=== PATIENT | male | born 1950 | race Caucasian/White ===

== ENCOUNTER → 2017-05-26 | Outpatient (CLI) | payer MEDICARE, OTHER ==
[2017-05-26 16:31] LABS: CHOLESTEROL LEVEL 213 MG/DL (<200); HDL CHOLESTEROL 60 MG/DL (>40); LDL CHOLESTEROL 136.4 MG/DL (<100); NON-HDL-C 153 MG/DL; TRIGLYCERIDES LEVEL 83 MG/DL (<150)
== END ==
LOC: M WUC 11:05
DX: E78.2 Mixed hyperlipidemia (principal)
CPT/HCPCS: 80061

== ENCOUNTER → 2017-11-08 | Outpatient (REF) | payer MEDICARE, OTHER | LOC: M SFHCADAM 17:25 | DX: Z12.5 Encounter for screening for malignant neoplasm of prostate (principal); G30.0 Alzheimer's disease with early onset; Z53.8 Procedure and treatment not carried out for other reasons ==

== ENCOUNTER → 2018-07-31 | Outpatient (CLI) | payer MEDICARE, OTHER ==
[2018-07-31 16:58] LABS: BASO % 0.4 % (0.0-1.0); EOS # 0.1 10^3/uL (0.0-0.50); EOS % 0.7 % (0.0-3.0); HEMATOCRIT 46.9 % (42.0-52.0); HEMOGLOBIN 16.4 g/dl (13.5-17.5); LYMPH # 1.1 10^3/uL (1.5-4.5); LYMPH % 15.8 % (24.0-44.0); MEAN CORPUSCULAR HEMOGLOBIN 31.1 pg (27.0-33.0); MEAN CORPUSCULAR VOLUME 88.8 fl (80.0-96.0); MONO # 0.5 10^3/uL (0.0-0.8); MONO % 6.5 % (0.0-5.0); NEUTROPHILS # 5.5 10^3/uL (1.8-7.7); NEUTROPHILS % 76.5 % (36.0-66.0); PLATELET COUNT, AUTOMATED 203 10^3/uL (150-450); RED BLOOD COUNT 5.28 10^6/uL (4.30-6.10); WHITE BLOOD COUNT 7.1 10^3/uL (4.0-10.0)
[2018-07-31 17:15] LABS: ALT/SGPT 50 U/L (12-78); BILIRUBIN,TOTAL 1.4 MG/DL (0.2-1.0); BLOOD UREA NITROGEN 15 MG/DL (7-18); CALCIUM LEVEL 8.6 MG/DL (8.8-10.2); CARBON DIOXIDE LEVEL 26 MEQ/L (21-32); CHLORIDE LEVEL 106 MEQ/L (98-107); CREATININE FOR GFR 1.16 MG/DL (0.70-1.30); FREE T4 1.11 NG/DL (0.76-1.46); GLOMERULAR FILTRATION RATE > 60.0 (>49); GLUCOSE, FASTING 92 MG/DL (70-100); POTASSIUM SERUM 4.1 MEQ/L (3.5-5.1); SODIUM LEVEL 140 MEQ/L (136-145); TOTAL PROTEIN 7.5 GM/DL (6.4-8.2)
== END ==
LOC: M WUC 13:38
PROVIDERS: ATTEND Physician Assistant
DX: G30.9 Alzheimer's disease, unspecified (principal)

== ENCOUNTER → 2018-10-15 | Outpatient (CLI) | payer MEDICARE, OTHER ==
[2018-10-15 13:32] LABS: HEMATOCRIT 46.4 % (42.0-52.0); HEMOGLOBIN 16.2 g/dl (13.5-17.5); MEAN CORPUSCULAR HEMOGLOBIN 31.9 pg (27.0-33.0); MEAN CORPUSCULAR HGB CONC 34.9 g/dl (32.0-36.5); MEAN CORPUSCULAR VOLUME 91.3 fl (80.0-96.0); PLATELET COUNT, AUTOMATED 196 10^3/uL (150-450); RED BLOOD COUNT 5.08 10^6/uL (4.30-6.10); WHITE BLOOD COUNT 5.6 10^3/uL (4.0-10.0)
[2018-10-15 13:39] LABS: ALBUMIN 3.6 GM/DL (3.2-5.2); ALT/SGPT 42 U/L (12-78); BILIRUBIN,TOTAL 0.9 MG/DL (0.2-1.0); BLOOD UREA NITROGEN 12 MG/DL (7-18); CALCIUM LEVEL 8.8 MG/DL (8.8-10.2); CARBON DIOXIDE LEVEL 27 MEQ/L (21-32); CHLORIDE LEVEL 108 MEQ/L (98-107); CREATININE FOR GFR 1.18 MG/DL (0.70-1.30); FREE T4 1.03 NG/DL (0.76-1.46); GLOMERULAR FILTRATION RATE > 60.0 (>49); GLUCOSE, FASTING 104 MG/DL (70-100); POTASSIUM SERUM 4.5 MEQ/L (3.5-5.1); SODIUM LEVEL 141 MEQ/L (136-145)
== END ==
LOC: M WUC 08:43
PROVIDERS: ATTEND Family Medicine
DX: G30.0 Alzheimer's disease with early onset (principal); Z12.5 Encounter for screening for malignant neoplasm of prostate
CPT/HCPCS: 36415; 80053; 84439; 84443; 85027; G0103

== ENCOUNTER → 2019-02-05 | Outpatient (CLI) | payer MEDICARE, OTHER ==
[2019-02-05 12:06] LABS: CHOLESTEROL RISK RATIO 3.576 (<5)
== END ==
LOC: M WUC 09:49
PROVIDERS: ATTEND Family Medicine
DX: E78.2 Mixed hyperlipidemia (principal)

== ENCOUNTER 2019-08-17 09:44 | Observation (INO) | payer MEDICARE, OTHER ==
[~2019-08-17] VITALS: Ht 175.3 cm; Wt 99.5 kg
[2019-08-17] MEDS ORDERED: NS 500 ML IV ONE (10:15)
[2019-08-17] MEDS ORDERED: NAMZ1CAP2 PO (10:36)
[2019-08-17] MEDS ORDERED: QUET5TAB PO (10:36)
[2019-08-17 11:03] LABS: VENOUS HCO3 25.8 MEQ/L (23.0-27.0); VENOUS O2 SATURATION 41.3 % (60.0-80.0); VENOUS PARTIAL PRESSURE CO2 45.7 mmHg (38.0-50.0); VENOUS PARTIAL PRESSURE O2 22.5 mmHg (30.0-50.0); VENOUS PH 7.369 UNITS (7.330-7.430); VENOUS TOTAL CO2 27.2 MEQ/L (24.0-28.0)
[2019-08-17 11:09] LABS: BASO % 0.1 % (0.0-1.0); HEMATOCRIT 45.9 % (42.0-52.0); HEMOGLOBIN 15.7 g/dl (13.5-17.5); LYMPH # 0.6 10^3/uL (1.5-5.0); LYMPH % 3.9 % (24.0-44.0); MEAN CORPUSCULAR HEMOGLOBIN 30.1 pg (27.0-33.0); MEAN CORPUSCULAR HGB CONC 34.2 g/dl (32.0-36.5); MEAN CORPUSCULAR VOLUME 88.1 fl (80.0-96.0); MONO # 0.9 10^3/uL (0.0-0.8); MONO % 6.1 % (0.0-5.0); NEUTROPHILS # 12.9 10^3/uL (1.5-8.5); NEUTROPHILS % 88.9 % (36.0-66.0); PLATELET COUNT, AUTOMATED 169 10^3/uL (150-450); RED BLOOD COUNT 5.21 10^6/uL (4.30-6.10); WHITE BLOOD COUNT 14.5 10^3/uL (4.0-10.0)
--- NOTE | 2019-08-17 11:34 | REP ---
CT BRAIN WITHOUT CONTRAST: CT brain performed without IV contrast. Coronal reconstruction images are performed. There is mild to moderate atrophy. There is no midline shift or mass effect. No abnormal parenchymal opacities are seen. There is no acute intracranial hemorrhage. There is no extra-axial fluid collection. Bone window examination is unremarkable. Visualized paranasal sinuses are clear and the mastoid air cells are well aerated and clear. IMPRESSION: Atrophy. No acute intracranial finding. No acute intracranial hemorrhage, midline shift, or mass effect. Electronically Signed by Cornelio Prince MD 08/17/2019 12:51 P
[2019-08-17 11:44] LABS: ALBUMIN 3.5 GM/DL (3.2-5.2); ALT/SGPT 37 U/L (12-78); BILIRUBIN,DIRECT 0.4 MG/DL (0.0-0.2); BILIRUBIN,TOTAL 1.6 MG/DL (0.2-1.0); BLOOD UREA NITROGEN 13 MG/DL (7-18); CALCIUM LEVEL 8.7 MG/DL (8.8-10.2); CARBON DIOXIDE LEVEL 27 MEQ/L (21-32); CHLORIDE LEVEL 105 MEQ/L (98-107); CK-MB VALUE MASS 4.1 NG/ML (<3.6); CPK CREATINE PHOSPHOKINASE 411 U/L (39-308); GLOMERULAR FILTRATION RATE > 60.0 (>49); GLUCOSE, FASTING 115 MG/DL (70-100); POTASSIUM SERUM 3.9 MEQ/L (3.5-5.1); SODIUM LEVEL 138 MEQ/L (136-145); THYROID STIMULATING HORMONE 0.624 uIU/ML (0.358-3.740); TOTAL PROTEIN 7.5 GM/DL (6.4-8.2); TROPONIN I < 0.02 NG/ML (< 0.10)
[2019-08-17 11:57] LABS: OSMOLALITY SERUM 287 MOSM/KG (280-301)
[2019-08-17] MEDS ORDERED: cefTRIAXone SOD 1 GM in D5W MINI-BAG PLUS 50 ML IV ONE (12:45)
--- NOTE | 2019-08-17 12:50 | REP ---
CHEST, SINGLE VIEW: Single view of the chest is performed. Comparison 08/22/2012. There is mild left ventricular prominence. No acute infiltrate is seen. Mediastinal silhouette is unremarkable. IMPRESSION: No evidence of acute pulmonary disease. Electronically Signed by Cornelio Prince MD 08/17/2019 12:52 P
[2019-08-17] MEDS ORDERED: ACETAMINOPHEN TAB 650MG DOSE (2X325MG) PO PRN (13:00)
[2019-08-17] MEDS ORDERED: FLAXOIL PO (13:20)
[2019-08-17 14:46] VITALS: BP 136/66
[2019-08-17] MEDS: NS 1,000 ML IV SCH (15:53)
--- NOTE | 2019-08-17 16:41 | HPEPDOC ---
General Date of Admission Aug 17, 2019 at 09:45 Date of Service: Aug 17, 2019 Attending Physician: ADA PETERSON MD Chief Complaint The patient is a 69-year-old male admitted with a reason for visit of Alzheimers Disease, Uti. Source: Family, Old records Exam Limitations: Dementia History of Present Illness She is a 69-year-old male with a history of early-onset Alzheimer's disease and HLD, who is brought in by for change in mental status. Patient was his usual state of health until 2 days prior to admission when noted that pt started to become more aggressive than usual. Pt would not let her clean him or change his soiled diaper. Then day prior to admission states that she was unable to get patient out of chair since 12pm. He continued to become increasingly agitated and she was unable to care for him at home. At baseline, patient is a normally able to feed self and ambulate with no assistance. On my exam, patient is noncommunicative and noninteractive. Only opens eyes to name, but otherwise does not follow commands. Unable to obtain ROS due to patient's mental status (advanced dementia). Of note states that pt had fever day prior to admission to 102.1. but she denies other symptoms of chills, CP, SOB, N/V, ab pain, diarrhea. Home Medications Scheduled Memantine HCl/Donepezil HCl (Namzaric 28 mg-10 mg Capsule) 1 Each Cap.spr.24, 1 CAP PO DAILY, (Reported) SPRINKLE ONTO MORNING CEREAL Quetiapine Fumarate (Quetiapine Fumarate) 50 Mg Tablet, 37.5 MG PO QHS, (Reported) [Flaxseed Oil] , 10 ML PO DAILY, (Reported) GIVEN WITH MORNING MEAL Allergies Coded Allergies: Celery (Verified Allergy, Unknown, 08/17/19) iodine (Verified Allergy, Unknown, rash, 08/17/19) Past Medical History Medical History early-onset Alzheimer's disease and HLD Surgical History tympanoplasty Family History Significant Family History: Cancer, Hypertension Social History * Smoker: Denies Alcohol: Denies Drugs: denies Psychosocial History: Dementia lives at home with who is primary caregiver, at baseline walks daily and able to feed self and help take care of him. (get up from chair, assist with showering, etc.) A-FIB/CHADSVASC A-FIB History Current/History of A-Fib/PAF?: No Current PO Anticoag Therapy: No Review of Systems Other systems ROS unable to obtain due to patient's mental status (advanced dementia) Physical Examination Other physical findings Well-developed, well-nourished male laying in bed in no acute distress, noninteractive and noncommunicative with interviewer. PERRLA, EOMI, patient would not open mouth to be examined. No LAD. RRR, normal S1/2, no MRG appreciated. CTA B/L, W/R/R Soft, nontender, nondistended. No edema, intact distal pulses. No rash or skin breakdown appreciated. Unable to assess neurological status as patient unwilling to participate with in exam AAO 1 Vital Signs Vital Signs Date Time Temp Pulse Resp B/P (MAP) Pulse Ox O2 Delivery O2 Flow Rate FiO2 08/17/19 14:46 99.0 82 20 136/66 (89) 94 Room Air Laboratory Data Labs 24H Laboratory Tests 2 08/17/19 10:53: Immature Granulocyte % (Auto) 1.0, Neutrophils (%) (Auto) 88.9H, Lymphocytes (%) (Auto) 3.9L, Monocytes (%) (Auto) 6.1H, Eosinophils (%) (Auto) 0.0, Basophils (%) (Auto) 0.1, Neutrophils # (Auto) 12.9H, Lymphocytes # (Auto) 0.6L, Monocytes # (Auto) 0.9H, Eosinophils # (Auto) 0.0, Basophils # (Auto) 0.0, Nucleated Red Blood Cells % (auto) 0.0, Urine Color OCTAVIANO, Urine Appearance CLOUDYH, Urine pH 5.0, Urine Specific [place] 1.031, Urine Protein 2+H, Urine Glucose (UA) NEGATIVE, Urine Ketones 1+H, Urine Blood 2+H, Urine Nitrite NEGATIVE, Urine Bilirubin NEGATIVE, Urine Urobilinogen 0.2, Urine Leukocyte Esterase 1+H, Urine WBC (Auto) 101H, Urine RBC (Auto) 10H, Urine Hyaline Casts (Auto) 0, Urine Bacteria (Auto) 1+H, Urine Squamous Epithelial Cells 1, Urine Mucus (Auto) LARGE, Urine Sperm (Auto) , Blood Gas Bicarbonate Standard 23.0, Venous Blood pH 7.369, Venous Blood Partial Pressure CO2 45.7, Venous Blood Partial Pressure O2 22.5L, Venous Blood Total Carbon Dioxide 27.2, Venous Blood HCO3 25.8, Venous Blood Oxygen Saturation 41.3L, Venous Blood Base Excess 0.0, Anion Gap 6L, Glomerular Filtration Rate > 60.0, Osmolality 287, Lactic Acid Level 1.9, Calcium Level 8.7L, Total Bilirubin 1.6H, Direct Bilirubin 0.4H, Aspartate Amino Transf (AST/SGOT) 25, Alanine Aminotransferase (ALT/SGPT) 37, Alkaline Phosphatase 118H, Ammonia < 10, Total Creatine Kinase 411H, Creatine Kinase MB 4.1H, Creatine Kinase MB Relative Index 1.00, Troponin I < 0.02, Total Protein 7.5, Albumin 3.5, Albumin/Globulin Ratio 0.88L, Thyroid Stimulating Hormone (TSH) 0.624, Ethyl Alcohol Level 0.004 CBC/BMP Laboratory Tests 08/17/19 10:53 Microbiology Microbiology 08/17/19 Blood Culture, Received Pending 08/17/19 Urine Culture, Received Pending 08/17/19 Blood Culture, Received Pending RAD Interpretation STUDY: CXR Rad Actions: Films Reviewed (my read: Clear CP angles, no cardiopulmonary disease identified) Assessment/Plan She is a 69-year-old male with a history of early-onset Alzheimer's disease and HLD, who is brought in by for change in mental status. Patient found to have UTI given dirty UA with elevated WBC count with left shift. UTI likely accounts for patient's altered mental status. At baseline, patient appears to be otherwise high functioning given advanced dementia. Will treat UTI assess mental status. #UTI. Admit for observation Ceftriaxone Pandey until patient more interactive Trend CBC -IVFs #Metabolic encephalopathy due to UTI. Monitor mental status. Treat UTI as above If mental status does not improve with treatment of UTI, would consider worsening of advanced dementia as etiology #Early-onset Alzheimer's disease Continue home meds PT/OT #HLD Continue home meds DVT PPX: Lovenox Disposition: Pending improvement in mental status and PT/OT evaluation Plan / VTE VTE Prophylaxis Ordered?: Yes ADA PETERSON MD Aug 17, 2019 15:17
[2019-08-17] MEDS ORDERED: PILL CUTTER 1 EACH XX PRN (18:00)
--- NOTE | 2019-08-17 18:33 | ECGEPIP ---
[facility] [place] - ED Test Date: 2019-08-17 Pat Name: BERNADINE JEFFERSON Department: Room: - Gender: Male International Account Representative: MAVERICK : 1950 Requested By: JIM Pimentel Order Number: [id number] Reading MD: Jim Wright Measurements Intervals [place] Rate: 88 P: 62 MA: 174 QRS: 43 QRSD: 93 T: 39 QT: 317 QTc: 385 Interpretive Statements SINUS RHYTHM LOW QRS VOLTAGE IN PRECORDIAL LEADS Nonspecific T wave abnormality Comparison tracing not on file Electronically Signed on 08-17-2019 18:33:13 EDT by Jim Wright
[2019-08-17] MEDS: QUEtiapine FUMARATE 25 MG TAB PO SCH (20:03)
[2019-08-17] MEDS: ENOXAPARIN 40MG/0.4ML SYRINGE (J1650 PER 10MG) SC SCH (20:06)
[2019-08-17 22:00] VITALS: BP 130/67
[2019-08-18] MEDS: NS 1,000 ML IV SCH ×4 (03:47→21:30)
[2019-08-18 06:00] VITALS: BP 141/76
[2019-08-18 06:40] LABS: HEMATOCRIT 42.5 % (42.0-52.0); HEMOGLOBIN 14.7 g/dl (13.5-17.5); MEAN CORPUSCULAR HEMOGLOBIN 30.5 pg (27.0-33.0); MEAN CORPUSCULAR HGB CONC 34.6 g/dl (32.0-36.5); MEAN CORPUSCULAR VOLUME 88.2 fl (80.0-96.0); PLATELET COUNT, AUTOMATED 166 10^3/uL (150-450); RED BLOOD COUNT 4.82 10^6/uL (4.30-6.10); WHITE BLOOD COUNT 13.8 10^3/uL (4.0-10.0)
--- NOTE | 2019-08-18 08:26 | IPNPDOC ---
Date Seen The patient was seen on 08/18/19. Progress Note SUBJECTIVE: Pt seen and examined at bedside. Pt appears to be doing well. Says he is feeling "OK". Rest of ROS unable to obtain due to pt's advanced dementia OBJECTIVE PHYSICAL EXAMINATION: VITAL SIGNS: Please see below. Well-developed, well-nourished male laying in bed asleep in no acute distress, minimally interactive but following some simple commands RRR, normal S1/2, no MRG appreciated. CTA B/L, W/R/R Soft, nontender, nondistended. No edema, intact distal pulses. No rash or skin breakdown appreciated. Pandey in place draining dark brown urine Pt moving all extremities AAO 1 - responds to name and able to say name LABORATORY DATA, IMAGING STUDIES, MICROBIOLOGY: Please see below. ASSESSMENT AND PLAN: She is a 69-year-old male with a history of early-onset Alzheimer's disease and HLD, who is brought in by for change in mental status. Patient found to have UTI given dirty UA with elevated WBC count with left shift. UTI likely accounts for patient's altered mental status. At baseline, patient appears to be otherwise high functioning given advanced dementia. Will treat UTI assess mental status. Pt stable overnight with no issues. #UTI. Admit for observation Ceftriaxone Pandey until patient more interactive Trend CBC slightly downtrending -IVFs - will increase to 125mls/hr given mild decrease in CK and dark brown urine #Metabolic encephalopathy due to UTI. Monitor mental status. Treat UTI as above If mental status does not improve with treatment of UTI, would consider worsening of advanced dementia as etiology #Early-onset Alzheimer's disease Continue home meds PT/OT #HLD Continue home meds DVT PPX: Lovenox Disposition: Pending improvement in mental status and PT/OT evaluation VS, I&O, 24H, Fishbone Vital Signs/I&O Vital Signs Date Time Temp Pulse Resp B/P (MAP) Pulse Ox O2 Delivery O2 Flow Rate FiO2 08/18/19 06:00 98.8 76 24 141/76 (97) 97 Room Air I&O- Last 24 Hours up to 6 AM 08/18/19 06:00 Intake Total 850 ml Output Total 475 ml Balance 375 ml Laboratory Data 24H LABS Laboratory Tests 2 08/17/19 10:53: Immature Granulocyte % (Auto) 1.0, Neutrophils (%) (Auto) 88.9H, Lymphocytes (%) (Auto) 3.9L, Monocytes (%) (Auto) 6.1H, Eosinophils (%) (Auto) 0.0, Basophils (%) (Auto) 0.1, Neutrophils # (Auto) 12.9H, Lymphocytes # (Auto) 0.6L, Monocytes # (Auto) 0.9H, Eosinophils # (Auto) 0.0, Basophils # (Auto) 0.0, Nucleated Red Blood Cells % (auto) 0.0, Urine Color OCTAVIANO, Urine Appearance CLOUDYH, Urine pH 5.0, Urine Specific [place] 1.031, Urine Protein 2+H, Urine Glucose (UA) NE GATIVE, Urine Ketones 1+H, Urine Blood 2+H, Urine Nitrite NEGATIVE, Urine Bilirubin NEGATIVE, Urine Urobilinogen 0.2, Urine Leukocyte Esterase 1+H, Urine WBC (Auto) 101H, Urine RBC (Auto) 10H, Urine Hyaline Casts (Auto) 0, Urine Bacteria (Auto) 1+H, Urine Squamous Epithelial Cells 1, Urine Mucus (Auto) LARGE, Urine Sperm (Auto) , Blood Gas Bicarbonate Standard 23.0, Venous Blood pH 7.369, Venous Blood Partial Pressure CO2 45.7, Venous Blood Partial Pressure O2 22.5L, Venous Blood Total Carbon Dioxide 27.2, Venous Blood HCO3 25.8, Venous Blood Oxygen Saturation 41.3L, Venous Blood Base Excess 0.0, Anion Gap 6L, Glomerular Filtration Rate > 60.0, Osmolality 287, Lactic Acid Level 1.9, Calcium Level 8.7L, Total Bilirubin 1.6H, Direct Bilirubin 0.4H, Aspartate Amino Transf (AST/SGOT) 25, Alanine Aminotransferase (ALT/SGPT) 37, Alkaline Phosphatase 118H, Ammonia < 10, Total Creatine Kinase 411H, Creatine Kinase MB 4.1H, Creatine Kinase MB Relative Index 1.00, Troponin I < 0.02, Total Protein 7.5, Albumin 3.5, Albumin/Globulin Ratio 0.88L, Thyroid Stimulating Hormone (TSH) 0.624, Ethyl Alcohol Level 0.004 08/18/19 05:45: Total Creatine Kinase 395H 08/18/19 05:51: Nucleated Red Blood Cells % (auto) 0.0 CBC/BMP Laboratory Tests 08/17/19 10:53 08/18/19 05:51 Microbiology Microbiology 08/17/19 Blood Culture, Received Pending 08/17/19 Urine Culture, Received Pending 08/17/19 Blood Culture, Received Pending ADA PETERSON MD Aug 18, 2019 08:26
[2019-08-18] MEDS: cefTRIAXone SOD 1 GM in D5W MINI-BAG PLUS 50 ML IV SCH (13:38)
[2019-08-18 14:00] VITALS: BP 109/55
[2019-08-18] MEDS: QUEtiapine FUMARATE 25 MG TAB PO SCH (21:00)
[2019-08-18] MEDS: ENOXAPARIN 40MG/0.4ML SYRINGE (J1650 PER 10MG) SC SCH (21:16)
[2019-08-18 22:00] VITALS: BP 114/69
[2019-08-19 06:00] VITALS: BP 110/70
[2019-08-19] MEDS: NS 1,000 ML IV SCH ×3 (06:11→08:10)
[2019-08-19 06:14] LABS: HEMATOCRIT 36.7 % (42.0-52.0); MEAN CORPUSCULAR HEMOGLOBIN 30.5 pg (27.0-33.0); MEAN CORPUSCULAR HGB CONC 34.6 g/dl (32.0-36.5); PLATELET COUNT, AUTOMATED 141 10^3/uL (150-450); RED BLOOD COUNT 4.17 10^6/uL (4.30-6.10)
[2019-08-19 06:21] LABS: HEMOGLOBIN 12.7 g/dl (13.5-17.5)
[2019-08-19] MEDS ORDERED: CEFD1CAP8 PO (12:23)
--- NOTE | 2019-08-19 12:35 | DS.PDOC ---
Discharge Summary General Date of Admission Aug 17, 2019 at 09:45 Date of Discharge 08/19/19 Attending Physician: ADA PETERSON MD Discharge Summary PROCEDURES PERFORMED DURING STAY: None. ADMITTING DIAGNOSES: 1. Metabolic encephalopathy 2. UTI DISCHARGE DIAGNOSES: 1. Metabolic encephalopathy 2. UTI 3. Early-onset Alzheimer's disease 4. HLD COMPLICATIONS/CHIEF COMPLAINT: Alzheimers Disease, Uti. HISTORY OF PRESENT ILLNESS: He is a 69-year-old male with a history of early-onset Alzheimer's disease and HLD, who is brought in by for change in mental status. Patient was his usual state of health until 2 days prior to admission when noted that pt started to become more aggressive than usual. Pt would not let her clean him or change his soiled diaper. Then day prior to admission states that she was unable to get patient out of chair since 12pm. He continued to become increasingly agitated and she was unable to care for him at home. At baseline, patient is a normally able to feed self and ambulate with no assistance. On my exam, patient is noncommunicative and noninteractive. Only opens eyes to name, but otherwise does not follow commands. Unable to obtain ROS due to patient's mental status (advanced dementia). Of note states that pt had fever day prior to admission to 102.1. but she denies other symptoms of chills, CP, SOB, N/V, ab pain, diarrhea. HOSPITAL COURSE: Pt found to have dirty UA consistent with UTI. Pt started on ceftriaxone with good effect. Pt's mental status improved rapidly. WBC resolved back to normal from 14. Pt's urine culture came back as klebsiella Oxytoca fairly sensitive. Will send pt home on Cefdinir 300 BID for 8more days to finish a 10day course. Spoke to who is in agreement with plan. Pt seen and e xamined on day of discharge and doing quite well. Pt observed ambulating with minimal assist, feeding self and per report from sounds to be close to baseline. Pt denies any complaints including fever, chills, CP, SOB, N/V, ab pain, leg pain or swelling. DISCHARGE MEDICATIONS: Please see below. ALLERGIES: Please see below. PHYSICAL EXAMINATION ON DISCHARGE: VITAL SIGNS: Please see below. Well-developed, well-nourished male sitting up in chair in NAD, interactive, answering questions with one-two word responses, following some commands with prompting RRR, normal S1/2, no MRG appreciated. CTA B/L, W/R/R Soft, nontender, nondistended. No edema, intact distal pulses. No rash or skin breakdown appreciated. Pt moving all extremities AAO 1 - responds to name and able to say name LABORATORY DATA: Please see below. PROGNOSIS: fair ACTIVITY: As tolerated DIET: DASH diet DISCHARGE PLAN: Discharge to home with home health services DISCHARGE INSTRUCTIONS: 1. Please follow up with your primary provider in 1week upon discharge from the hospital ITEMS TO FOLLOWUP ON ON OUTPATIENT: 1. please ensure pt back to baseline DISCHARGE CONDITION: Stable TIME SPENT ON DISCHARGE: 36 minutes. Vital Signs/I&Os Vital Signs Date Time Temp Pulse Resp B/P (MAP) Pulse Ox O2 Delivery O2 Flow Rate FiO2 08/19/19 06:00 98.0 70 21 110/70 (83) 99 Room Air I&O- Last 24 Hours up to 6 AM 08/19/19 05:59 Intake Total 2435 ml Output Total 200 ml Balance 2235 ml Laboratory Data Labs 24H Laboratory Tests 2 08/19/19 05:25: Nucleated Red Blood Cells % (auto) 0.0 CBC/BMP Laboratory Tests 08/19/19 05:25 Microbiology Microbiology 08/17/19 Blood Culture - Preliminary, Resulted No Growth after 48 hours. All Specime... 08/17/19 Urine Culture - Final, Complete Klebsiella Oxytoca 08/17/19 Blood Culture - Preliminary, Resulted No Growth after 48 hours. All Specime... Discharge Medications Scheduled Cefdinir (Cefdinir) 300 Mg Capsule, 300 MG PO BID Memantine HCl/Donepezil HCl (Namzaric 28 mg-10 mg Capsule) 1 Each Cap.spr.24, 1 CAP PO DAILY, (Reported) SPRINKLE ONTO MORNING CEREAL Quetiapine Fumarate (Quetiapine Fumarate) 50 Mg Tablet, 37.5 MG PO QHS, (Reported) [Flaxseed Oil] , 10 ML PO DAILY, (Reported) GIVEN WITH MORNING MEAL Allergies Coded Allergies: Celery (Verified Allergy, Unknown, 08/17/19) iodine (Verified Allergy, Unknown, rash, 08/17/19) ADA PETERSON MD Aug 19, 2019 12:35
[2019-08-19] MEDS: cefTRIAXone SOD 1 GM in D5W MINI-BAG PLUS 50 ML IV SCH (13:00)
== END 2019-08-19 13:21 | disposition home or self-care (01) ==
LOC: M ED 09:44 → EDBD 09:44 → M ED INP 09:45 → ENRESERV 13:34 → M MSPAV 14:09
PROVIDERS: ADMIT Internal Medicine; ATTEND Internal Medicine
DX: G93.41 Metabolic encephalopathy (principal); N39.0 Urinary tract infection, site not specified; B96.1 Klebsiella pneumoniae [K. pneumoniae] as the cause of diseases classified elsewhere; E78.49 Other hyperlipidemia; Z79.899 Other long term (current) drug therapy; Z91.018 Allergy to other foods
CPT/HCPCS: 36415; 70450; 71045; 80048; 80076; 81001; 82140; 82550; 82553; 82803; 83605; 83930; 84443; 84484; 85025; 85027; 87040; 87088; 87186; 93005; 93041; 96361; 96365; 96372; 97161; 97165; 97530; 99285; G0378; G0480; J0696; J1650

== ENCOUNTER → 2019-08-21 | Outpatient (CLI) | payer MEDICARE, OTHER ==
[~2019-08-21] MED LIST: CEFD1CAP8 PO; FLAXOIL PO; GING1CAP PO; NAMZ1CAP2 PO; QUET5TAB PO; SERO50TA PO; [UNRECOGNIZED DRUG - OTHER] PO
--- NOTE | 2019-08-21 15:45 | REP ---
Chest x-ray: Four views. History: Dyspnea on exertion. Comparison chest x-ray: August 17, 2019. Findings: There is linear bibasilar plate-like atelectasis. On the right, this overlies the dome of the right hemidiaphragm. On the left it is behind the heart and vertically oriented. No infiltrate is seen. Heart size is borderline and unchanged. Pulmonary vasculature is not increased. There is no evidence of pneumothorax. Pleural angles appear sharp. Impression: Mild bibasilar plate-like atelectasis. Otherwise no active disease. Electronically Signed by Alban Meléndez MD 08/22/2019 10:03 A
== END ==
LOC: M ADAMS 14:58
PROVIDERS: ATTEND Family Medicine
DX: J98.11 Atelectasis (principal); R06.00 Dyspnea, unspecified
CPT/HCPCS: 71046; 80053; 85027; 99496; G0463

== ENCOUNTER → 2019-08-21 | Outpatient (REF) | payer MEDICARE, OTHER ==
[~2019-08-21] MED LIST changes: -GING1CAP PO; -SERO50TA PO; -[UNRECOGNIZED DRUG - OTHER] PO
[2019-08-21 16:25] LABS: HEMATOCRIT 43.5 % (42.0-52.0); HEMOGLOBIN 15.1 g/dl (13.5-17.5); MEAN CORPUSCULAR HEMOGLOBIN 30.4 pg (27.0-33.0); MEAN CORPUSCULAR HGB CONC 34.7 g/dl (32.0-36.5); MEAN CORPUSCULAR VOLUME 87.7 fl (80.0-96.0); PLATELET COUNT, AUTOMATED 201 10^3/uL (150-450); RED BLOOD COUNT 4.96 10^6/uL (4.30-6.10); WHITE BLOOD COUNT 6.5 10^3/uL (4.0-10.0)
[2019-08-21 16:43] LABS: ALT/SGPT 53 U/L (12-78); BILIRUBIN,TOTAL 0.8 MG/DL (0.2-1.0); BLOOD UREA NITROGEN 11 MG/DL (7-18); CALCIUM LEVEL 8.5 MG/DL (8.8-10.2); CARBON DIOXIDE LEVEL 26 MEQ/L (21-32); CHLORIDE LEVEL 106 MEQ/L (98-107); CREATININE FOR GFR 0.95 MG/DL (0.70-1.30); GLOMERULAR FILTRATION RATE > 60.0 (>49); GLUCOSE, FASTING 79 MG/DL (70-100); POTASSIUM SERUM 3.8 MEQ/L (3.5-5.1); SODIUM LEVEL 140 MEQ/L (136-145); TOTAL PROTEIN 6.8 GM/DL (6.4-8.2)
== END ==
LOC: M SFHCADAM 14:56
PROVIDERS: ATTEND Family Medicine
DX: R06.00 Dyspnea, unspecified (principal)

== ENCOUNTER 2019-09-12 14:37 | Inpatient (IN) | payer MEDICARE, OTHER ==
[~2019-09-12] VITALS: Ht 175.3 cm; Wt 92.7 kg
[2019-09-12] MEDS ORDERED: NS 1,000 ML IV ONE ×2 (15:00→18:00)
[2019-09-12 15:30] LABS: BASO % 0.2 % (0.0-1.0); EOS % 0.3 % (0.0-3.0); HEMATOCRIT 44.9 % (42.0-52.0); HEMOGLOBIN 15.4 g/dl (13.5-17.5); LYMPH % 9.5 % (24.0-44.0); MEAN CORPUSCULAR HEMOGLOBIN 30.6 pg (27.0-33.0); MEAN CORPUSCULAR HGB CONC 34.3 g/dl (32.0-36.5); MEAN CORPUSCULAR VOLUME 89.1 fl (80.0-96.0); MONO # 0.9 10^3/uL (0.0-0.8); MONO % 8.7 % (0.0-5.0); NEUTROPHILS # 8.6 10^3/uL (1.5-8.5); NEUTROPHILS % 80.9 % (36.0-66.0); PLATELET COUNT, AUTOMATED 160 10^3/uL (150-450); RED BLOOD COUNT 5.04 10^6/uL (4.30-6.10); WHITE BLOOD COUNT 10.6 10^3/uL (4.0-10.0)
[2019-09-12 16:00] LABS: ALBUMIN 3.2 GM/DL (3.2-5.2); ALT/SGPT 29 U/L (12-78); AMYLASE 21 U/L (25-115); BILIRUBIN,DIRECT 0.4 MG/DL (0.0-0.2); BILIRUBIN,TOTAL 1.6 MG/DL (0.2-1.0); CK-MB VALUE MASS 2.2 NG/ML (<3.6); CPK CREATINE PHOSPHOKINASE 308 U/L (39-308); LIPASE 67 U/L (73-393); MB/CK RELATIVE INDEX 0.71 (< OR =4); TOTAL PROTEIN 7.2 GM/DL (6.4-8.2); TROPONIN I < 0.02 NG/ML (< 0.10)
--- NOTE | 2019-09-12 17:37 | REP ---
REASON FOR EXAM: Left lower quadrant pain. There are no priors for comparison. The lack of intravenous contrast and oral bowel preparatory contrast decreases the sensitivity of the exam. There are patchy bibasilar opacities seen in the lung holden along with small, right slightly greater than left, pleural effusions. Limited evaluation of the solid intra-abdominal organs shows what is likely a 1.5 cm sized simple cyst in the anterior segment of the right lobe of the liver. The gallbladder is unremarkable in appearance. The spleen is within normal limits. The pancreas is seen in a limited fashion, but there are no gross abnormalities. No gross abnormalities are seen involving the adrenal glands or kidneys. There is no evidence of nephroureteral lithiasis, hydronephrosis, or hydroureter. There are no urinary bladder calcifications. Limited evaluation of the abdominal aorta and para-aortic regions shows no gross abnormalities. There is no evidence of free fluid or free air in the abdomen or pelvis. Limited evaluation of the intra-abdominal and intrapelvic bowel loops and their mesenteries shows no gross abnormalities. There are a few scattered gas and fluid-filled small bowel loops in the abdomen in a nonspecific fashion. Bone window technique throughout the exam shows chronic spinal, hip, and sacroiliac joint degenerative changes. IMPRESSION: Bibasilar lung field opacities and tiny pleural effusions as described above. Basilar pneumonia cannot be ruled out, particularly on the right. Possible mild small bowel ileus. Other findings and limitations as described above. Electronically Signed by Main Tracey DO 09/13/2019 09:24 A
[2019-09-12 17:53] LABS: ERYTHROCYTE SEDIMENTATION RATE 66 mm/hr (0-20)
[2019-09-12] MEDS ORDERED: cefTRIAXone SOD 2 GM in D5W MINI-BAG PLUS 50 ML IV ONE (18:00)
[2019-09-12] MEDS ORDERED: GING1CAP PO (18:09)
[2019-09-12] MEDS ORDERED: NAMZ1CAP2 PO (18:09)
[2019-09-12] MEDS ORDERED: [UNRECOGNIZED DRUG - OTHER] PO (18:09)
[2019-09-12] MEDS ORDERED: SERO50TA PO (18:09)
[2019-09-12] MEDS ORDERED: ACETAMINOPHEN 650 MG SUPP As Ordered ONE (18:20)
[2019-09-12] MEDS ORDERED: ACETAMINOPHEN 650 MG SUPP PR ONE (18:30)
[2019-09-12] MEDS ORDERED: ACETAMINOPHEN TAB 650MG DOSE (2X325MG) PO PRN (19:30)
--- NOTE | 2019-09-12 19:45 | HPEPDOC ---
[facility] Medical History & Physical Date of Admission Sep 12, 2019 Date of Service: Sep 12, 2019 Primary Care Physician: Alvin Brown MD Attending Physician: HAZEL SHAW MD History and Physical TIME OF SERVICE: 8:45 PM CHIEF COMPLAINT: Abdominal pain HISTORY OF PRESENT ILLNESS: The majority of the history is obtained from Dr. Wrihgt & the patient's ; the patient has Alzheimer's & currently confused. This 63-year-old gentleman was last admitted on August 16 for management of UTI associated with encephalopathy. EMS brought into the hospital after they were called to evaluate him because he is complaining of left lower quadrant abdominal pain. During his stay in the ER, he has been intermittently arousable but is not following commands or answering questions. I called his who reported that he was c/o of left lower abdominal pain; he has also been more confused compared to his baseline with fevers. She also added that he has more difficulties walking over the last 2 weeks and feeding himself since his last hospital admission; prior to that he was able to walk slowly and feed himself. REVIEW OF SYSTEMS: 12 point review of systems negative except as listed in HPI PAST MEDICAL/ SURGICAL HISTORY: Stage 6 Alzheimer's Dyslipidemia Tympanoplasty Class 1 Obesity SOCIAL HISTORY: Per chart review doesn't smoke. Doesn't drink. Doesn't use alcohol. His is his primary caregiver at baseline is able to walk and able to feed himself, but his assists him with hygienic activities FAMILY HISTORY: Cancer Hypertension ALLERGIES: Please see below. HOME MEDICATIONS: Please see below. PHYSICAL EXAMINATION: Vital Signs Date Time Temp Pulse Resp B/P (MAP) Pulse Ox O2 Delivery O2 Flow Rate FiO2 09/12/19 14:47 123/74 (90) 09/12/19 14:52 98 97 09/12/19 15:02 99.2 24 Room Air GEN: well-nourished / well developed INTEGUMENT: not flushed HEENT: NCAT / mucus membranes dry CVS: RRR/NMRG/ radial pulses intact / no lower extremity edema LUNGS: lungs are clear to auscultation bilaterally on room air ABDOMEN: Contour (flat) / bowel sounds hypoactive soft NEURO: normal Babinski / unable to complete additional testing bc of poor cooperation PSYCH: GCS 10/ not following commands commands LABORATORY DATA: 09/12/19 15:16 Total Bilirubin 1.6H, Direct Bilirubin 0.4H, Aspartate Amino Transf (AST/SGOT) 16, Alanine Aminotransferase (ALT/SGPT) 29, Alkaline Phosphatase 103, Total Creatine Kinase 308, Creatine Kinase MB 2.2, Creatine Kinase MB Relative Index 0.71, Troponin I < 0.02, C-Reactive Protein, Quantitative 15.30H, Total Protein 7.2, Albumin 3.2, Albumin/Globulin Ratio 0.80L, Amylase Level 21L, Lipase 67L Immature Granulocyte % (Auto) 0.4, Neutrophils (%) (Auto) 80.9H, Lymphocytes (%) (Auto) 9.5L, Monocytes (%) (Auto) 8.7H, Eosinophils (%) (Auto) 0.3, Basophils (%) (Auto) 0.2, Neutrophils # (Auto) 8.6H, Lymphocytes # (Auto) 1.0L, Monocytes # (Auto) 0.9H, Eosinophils # (Auto) 0.0, Basophils # (Auto) 0.0, Nucleated Red Blood Cells % (auto) 0.0, Erythrocyte Sedimentation Rate 66H POC Glucose (Misc Panel) 105, POC Sodium (Misc Panel) 141, POC Potassium (Misc Panel) 3.9, POC Chloride (Misc Panel) 102, POC Total CO2 (Misc Panel) 26.0, POC Blood Urea Nitrogen (Misc Panel 11, POC Ionized Calcium (Misc Panel) 4.5, POC Creatinine (Misc Panel) 1.0, POC Hematocrit (Misc Panel) 49.0 Lactic Acid Level 1.3 Urine Color YELLOW, Urine Appearance CLEAR, Urine pH 6.0, Urine Specific [place] 1.025, Urine Protein 1+H, Urine Glucose (UA) NEGATIVE, Urine Ketones NEGATIVE, Urine Blood NEGATIVE, Urine Nitrite NEGATIVE, Urine Bilirubin NEGATIVE, Urine Urobilinogen 4.0H, Urine Leukocyte Esterase NEGATIVE, Urine WBC (Auto) 2, Urine RBC (Auto) 5H, Urine Hyaline Casts (Auto) 0, Urine Bacteria (Auto) NEGATIVE, Urine Squamous Epithelial Cells 0, Urine Mucus (Auto) SMALL, Urine Sperm (Auto) Coronavirus (COVID-19)(PCR) NEGATIVE IMAGING: Chest x-ray: report pending... CT abdomen/pelvis " IMPRESSION: Bibasilar lung field opacities and tiny pleural effusions as described above. Basilar pneumonia cannot be ruled out, particularly on the right. Possible mild small bowel ileus." MICROBIOLOGY: 09/12/19 Blood Culture, Received Pending 09/12/19 Blood Culture, Received Pending ASSESSMENT: Mr. Luna is a 69-year-old with history of Alzheimer's and dyslipidemia who is admitted for management of encephalopathy, likely due to pneumonia. PLAN: 1. Bilateral Pneumonia Main symptoms include confusion when compared to his baseline O2 sats wnl on RA COVID 19 neg -CURB 65 score to determine if pt should be admitted = 3 points = severe risk = 14% 30 day mortality Plan: admit to PCU / continuous pulse ox & supplemental O2/ f/u final chest x- ray report / MRSA, sputum & blood cx / IV Ceftriaxone and Doxycylcine / IVF / Acetaminophen for fever 2. Metabolic Encephalopathy He delirium 2/2 PNA (Predisposing factor for delirium is is pre-existing dementia) Plan: neurochecks & tx PNA / asked his to call to speak to patient to help 3. Abdominal Pain Possibly 2/2 ileus vs PNA ? EKG showed NSR w a HR of 84 Plan: Plan: f/u KUB in AM if abnormal the day time team may consider Gen Surg consult if it is unremarkable they may advance his diet based on [facility]'s recs / Ofrimev for pain 4. Stage 6 Alzheimer's (at baseline doesn't speak, can't dress himself, is incontinent). His Palliative Performance Scale is about 30 to 40%. He meets criteria for hospice bc he is dependent on his for dressing, eating, and hygienic activities, he is incontinent and has now been hospitalized for PNA. - Plan: quetiapine & memantine w donepezil/ consider sitter / NPO pending [facility] eval to determine if he needs a modified diet / he will likely need assistance with eating / the day time team can consult Hospice 5. Dyslipidemia - Plan: resume home meds 6. Class 1 obesity. Complicates care - Plan: f/u A1C / will likely need 2 person assistance for transferring / f/u A1C DVT PROPHYLAXIS:Lovenox DISPOSITION: Likely home with after more than 2 midnight's stay; PFS and PT/OT consults have been been placed to see if his needs referral to respite services and to ensure that they have a home RN, home health aide and other equipment such as a shower chair ect... Home Medications Scheduled Flaxseed Oil (Linseed Oil) 1 Ml Oil, 10 ML PO DAILY PUT IN CEREAL OR APPLESAUCE Jocelyn Root (Jocelyn Root) 550 Mg Capsule, 550 MG PO DAILY OPEN CAPSULE AND SPRINKLE IN APPLESAUCE OR CEREAL Memantine HCl/Donepezil HCl (Namzaric 28 mg-10 mg Capsule) 1 Each Cap.spr.24, 1 CAP PO DAILY OPEN CAPSULE AND SPRINKLE IN APPLESAUCE OR CEREAL Quetiapine Fumarate (Seroquel) 50 Mg Tablet, 25 MG PO QPM CRUSH IN APPLESAUCE Allergies Coded Allergies: iodine (Verified Allergy, Mild, rash, 09/12/19) latex (Verified Allergy, Mild, 09/12/19) Celery (Verified Allergy, Unknown, 08/17/19) A-FIB/CHADSVASC A-FIB History Current/History of A-Fib/PAF?: No Current PO Anticoag Therapy: No HAZEL SHAW MD Sep 12, 2019 19:45
[2019-09-12 21:00] VITALS: BP 127/94
[2019-09-12] MEDS: QUEtiapine FUMARATE 25 MG TAB PO SCH (21:00)
[2019-09-12] MEDS ORDERED: DOCUSATE SODIUM 100 MG CAP PO SCH (21:00)
[2019-09-12 22:00] VITALS: O2SAT 97
[2019-09-12] MEDS ORDERED: BENZONATATE 100 MG CAP PO SCH (22:00)
[2019-09-12] MEDS: DOXYCYCLINE HYCLATE 100 MG in D5W MINI-BAG PLUS 100 ML IV SCH (22:06)
[2019-09-12] MEDS: NS 1,000 ML IV SCH (22:07)
--- NOTE | 2019-09-12 22:57 | REP ---
CHEST, SINGLE VIEW: Single view of the chest is performed and compared to prior study of 08/21/2019. There is mild atelectasis/infiltrate in the right lung base. No definite new infiltrate is seen on the left. There is mild left ventricular prominence, unchanged. Mediastinal silhouette is unchanged. IMPRESSION: Right base atelectasis/infiltrate. Electronically Signed by Cornelio Prince MD 09/13/2019 09:30 A
[2019-09-12 23:00] VITALS: O2SAT 95
[2019-09-12] MEDS: ACETAMINOPHEN *IV* 1,000 MG in IV 1 EA IV SCH (23:07)
[2019-09-13] VITALS (11 sets, daily range): BP systolic 124–140; BP diastolic 64–82; O2SAT 94–100
[2019-09-13 05:05] LABS: HEMATOCRIT 41.1 % (42.0-52.0); MEAN CORPUSCULAR HEMOGLOBIN 30.3 pg (27.0-33.0); MEAN CORPUSCULAR HGB CONC 34.1 g/dl (32.0-36.5); PLATELET COUNT, AUTOMATED 148 10^3/uL (150-450); RED BLOOD COUNT 4.62 10^6/uL (4.30-6.10); WHITE BLOOD COUNT 9.8 10^3/uL (4.0-10.0)
[2019-09-13 05:21] LABS: BLOOD UREA NITROGEN 10 MG/DL (7-18); CALCIUM LEVEL 8.1 MG/DL (8.8-10.2); CARBON DIOXIDE LEVEL 25 MEQ/L (21-32); CHLORIDE LEVEL 108 MEQ/L (98-107); GLOMERULAR FILTRATION RATE > 60.0 (>49); GLUCOSE, FASTING 108 MG/DL (70-100); MAGNESIUM LEVEL 1.9 MG/DL (1.8-2.4); POTASSIUM SERUM 3.8 MEQ/L (3.5-5.1); SODIUM LEVEL 140 MEQ/L (136-145)
[2019-09-13 05:22] LABS: HEMOGLOBIN A1c 5.3 %
[2019-09-13] MEDS: NS 1,000 ML IV SCH (05:49)
[2019-09-13] MEDS: ACETAMINOPHEN *IV* 1,000 MG in IV 1 EA IV SCH (05:49)
[2019-09-13] MEDS: MEMANTINE 5MG TABLET (NAMENDA) PO SCH ×2 (09:00→20:46)
[2019-09-13] MEDS ORDERED: DONEPEZIL 5 MG TAB PO SCH (09:00)
[2019-09-13] MEDS ORDERED: ENTER DRUG NAME HERE (PATIENT'S OWN MED) PO SCH (09:00)
[2019-09-13] MEDS: DOXYCYCLINE HYCLATE 100 MG in D5W MINI-BAG PLUS 100 ML IV SCH ×2 (09:05→20:46)
[2019-09-13] MEDS: ENOXAPARIN 40MG/0.4ML SYRINGE (J1650 PER 10MG) SC SCH (09:05)
--- NOTE | 2019-09-13 13:00 | ECGEPIP ---
[facility] - ED Test Date: 2019-09-12 Pat Name: BERNADINE JEFFERSON Department: Room: [place] [address] Gender: Male Accounting Practice Manager: kamila : [id number] Requested By: SANDRA Pimentel Order Number: [id number] Reading MD: Rex Means Measurements Intervals [place] Rate: 84 P: 18 IN: 166 QRS: -11 QRSD: 82 T: 0 QT: 303 QTc: 358 Interpretive Statements SINUS RHYTHM LOW QRS VOLTAGE IN PRECORDIAL LEADS NONSPECIFIC T-WAVE ABNORMALITY SIMILAR TO 08/17/19 Electronically Signed on 09-13-2019 13:00:29 EDT by Rex Means
[2019-09-13] MEDS ORDERED: ACETAMINOPHEN 650 MG SUPP PR PRN (13:15)
[2019-09-13] MEDS ORDERED: SLF 3 ML SYR IV PRN (13:30)
[2019-09-13] MEDS: cefTRIAXone SOD 1 GM in D5W MINI-BAG PLUS 50 ML IV SCH (17:09)
[2019-09-13] MEDS: SLF 3 ML SYR IV SCH ×2 (17:09→21:17)
--- NOTE | 2019-09-13 18:44 | IPNPDOC ---
Text Note Date of Service The patient was seen on 09/13/19. NOTE SUBJECTIVE: Patient admitted overnight for bilateral pneumonia with history of Alzheimer's dementia. Patient is seen at bedside and has no acute complaints at this time and is unable to answer any questions as well. He also is unable to follow commands. No acute events reported overnight. OBJECTIVE: PHYSICAL EXAM: Vitals: (see below) General: No acute distress, sitting comfortably in chair at bedside. HEENT: Normocephalic, atraumatic. EOMI. No scleral icterus. Moist mucous membranes. No pharyngeal erythema or uvular deviation. Neck: No JVD, lymphadenopathy, or thyromegaly. Cardiac: RRR, Normal S1 and S2, No murmurs, gallops, rubs. Pulm: Clear to auscultation b/l. Symmetric thorax. No wheezing, crackles, rhonchi Abd: Bowel Sounds present. Abdomen is soft, non-tender, non-distended. Ext: 1+ pitting edema in bilateral lower extremity. Neuro: No focal neuro deficits LABORATORY DATA, MICROBIOLOGY: Please see below. IMAGING STUDIES: ASSESSMENT AND PLAN: #. Pneumonia -Continue Rocephin and doxycycline pending results of pro-calcitonin. Blood cultures negative after 24 hours. -Patient scheduled to go for speech therapy evaluation which is showing patient can be placed on a mechanical soft diet. -Oxygen saturations were normal overnight, discontinuing oxygen unless sats drop. #. Questionable encephalopathy -After speaking with staff who is familiar with patient, patient appears to be a mental baseline. -Family has spoken with nursing staff and are considering placing patient in [facility] as he has become too much to look after him at home. #. Abdominal pain -Patient is not complaining of any abdominal pain and abdomen is nontender to palpation. Resolved. #. Alzheimer's Continue with Seroquel, Memantine, donepezil. -Sitter if needed, however he does not appear to have much movement at baseline. DVT prophylaxis: Rajiv Attending attestation: I evaluated and examined the patient in person; I discussed the care with Resident in detail and agree with the plan above. VS,Fishbone, I+O VS, Fishbone, I+O Laboratory Tests 09/13/19 04:33 Vital Signs Date Time Temp Pulse Resp B/P (MAP) Pulse Ox O2 Delivery O2 Flow Rate FiO2 09/13/19 16:00 97.3 68 17 136/79 (98) 98 Room Air 09/13/19 12:00 3.0 I&O- Last 24 Hours up to 6 AM 09/13/19 06:00 Intake Total 2800 ml Output Total 800 ml Balance 2000 ml GME ATTESTATION GME ATTESTATION My faculty preceptor for this patient encounter was physically present during the encounter and was fully available. All aspects of the patient interview, examination, medical decision making process, and medical care plan development were reviewed and approved by the faculty preceptor. The faculty preceptor is aware and concurs with the plan as stated in the body of this note and will attest to such by his/her cosignature. JAYLYN LUND DO September 13, 2019 18:44 BEVERLEY PALACIO MD September 17, 2019 18:48
[2019-09-13] MEDS: QUEtiapine FUMARATE 25 MG TAB PO SCH (20:46)
[2019-09-13] MEDS: DONEPEZIL 5 MG TAB PO SCH (20:47)
[2019-09-14] VITALS: BP 126/86
[2019-09-14] MEDS: SLF 3 ML SYR IV SCH ×3 (05:13→22:22)
[2019-09-14 08:00] VITALS: BP 134/69
[2019-09-14] MEDS: ENOXAPARIN 40MG/0.4ML SYRINGE (J1650 PER 10MG) SC SCH (09:52)
[2019-09-14] MEDS: DOXYCYCLINE HYCLATE 100 MG in D5W MINI-BAG PLUS 100 ML IV SCH ×2 (09:52→19:59)
[2019-09-14] MEDS: MEMANTINE 5MG TABLET (NAMENDA) PO SCH ×2 (09:52→19:59)
[2019-09-14 12:00] VITALS: BP 125/78
--- NOTE | 2019-09-14 15:59 | IPNPDOC ---
Text Note Date of Service The patient was seen on 09/14/19. NOTE SUBJECTIVE: Patient admitted overnight for bilateral pneumonia with history of Alzheimer's dementia. Patient is seen at bedside and has no acute complaints is still unable to answer any questions or follow commands reliably. No acute events reported overnight reported. OBJECTIVE: PHYSICAL EXAM: Vitals: (see below) General: No acute distress, sitting comfortably in chair at bedside. HEENT: Normocephalic, atraumatic. EOMI. No scleral icterus. Moist mucous membranes. No pharyngeal erythema or uvular deviation. Neck: No JVD, lymphadenopathy, or thyromegaly. Cardiac: RRR, Normal S1 and S2, No murmurs, gallops, rubs. Pulm: Clear to auscultation b/l. Symmetric thorax. No wheezing, crackles, rhonchi Abd: Bowel Sounds present. Abdomen is soft, non-tender, non-distended. Ext: 1+ pitting edema in bilateral lower extremity. Neuro: No focal neuro deficits LABORATORY DATA, MICROBIOLOGY: Please see below. IMAGING STUDIES: ASSESSMENT AND PLAN: #. Pneumonia -Continue Rocephin and doxycycline, as patient seems high risk for atelectasis causing pneumonia given how inactive he is. Blood cultures negative to date. Will complete 5 day course of abx while we await potential placement. -Patient scheduled to go for speech therapy evaluation which is showing patient can be placed on a mechanical soft diet. -Oxygen saturations were normal overnight, discontinuing oxygen unless sats drop. #. Questionable encephalopathy -After speaking with staff who is familiar with patient, patient appears to be a mental baseline. -Family has spoken with nursing staff and are considering placing patient in [facility] as he has become too much to look after him at home. #. Abdominal pain -Patient is not complaining of any abdominal pain and abdomen is nontender to palpation. Resolved. #. Alzheimer's Continue with Seroquel, Memantine, donepezil. -Sitter if needed, however he does not appear to have much movement at baseline. DVT prophylaxis: Lovenox. Attending attestation: I evaluated and examined the patient in person; I discussed the care with Resident in detail and agree with the plan above. VS,Fishbone, I+O VS, Fishbone, I+O Vital Signs Date Time Temp Pulse Resp B/P (MAP) Pulse Ox O2 Delivery O2 Flow Rate FiO2 09/14/19 12:00 98.2 76 18 125/78 (94) 96 Room Air 09/13/19 12:00 3.0 I&O- Last 24 Hours up to 6 AM 09/14/19 06:00 Intake Total 1070 ml Output Total 0 ml Balance 1070 ml GME ATTESTATION GME ATTESTATION My faculty preceptor for this patient encounter was physically present during the encounter and was fully available. All aspects of the patient interview, examination, medical decision making process, and medical care plan development were reviewed and approved by the faculty preceptor. The faculty preceptor is aware and concurs with the plan as stated in the body of this note and will attest to such by his/her cosignature. JAYLYN LUND DO September 14, 2019 15:59 BEVERLEY PALACIO MD September 17, 2019 18:43
[2019-09-14 16:00] VITALS: BP 147/83
[2019-09-14] MEDS: cefTRIAXone SOD 1 GM in D5W MINI-BAG PLUS 50 ML IV SCH (18:32)
[2019-09-14] MEDS: QUEtiapine FUMARATE 25 MG TAB PO SCH (19:59)
[2019-09-14 20:00] VITALS: BP 120/83
[2019-09-14] MEDS: DONEPEZIL 5 MG TAB PO SCH (20:00)
[2019-09-15] VITALS: BP 126/74
[2019-09-15 03:58] LABS: HEMATOCRIT 37.3 % (42.0-52.0); HEMOGLOBIN 12.7 g/dl (13.5-17.5); MEAN CORPUSCULAR HEMOGLOBIN 29.9 pg (27.0-33.0); MEAN CORPUSCULAR VOLUME 87.8 fl (80.0-96.0); PLATELET COUNT, AUTOMATED 178 10^3/uL (150-450); RED BLOOD COUNT 4.25 10^6/uL (4.30-6.10); WHITE BLOOD COUNT 6.1 10^3/uL (4.0-10.0)
[2019-09-15 04:20] LABS: BLOOD UREA NITROGEN 11 MG/DL (7-18); CALCIUM LEVEL 7.8 MG/DL (8.8-10.2); CARBON DIOXIDE LEVEL 28 MEQ/L (21-32); CHLORIDE LEVEL 107 MEQ/L (98-107); GLOMERULAR FILTRATION RATE > 60.0 (>49); GLUCOSE, FASTING 111 MG/DL (70-100); POTASSIUM SERUM 3.8 MEQ/L (3.5-5.1); SODIUM LEVEL 141 MEQ/L (136-145)
[2019-09-15] MEDS: SLF 3 ML SYR IV SCH ×3 (05:38→21:05)
[2019-09-15 08:00] VITALS: BP 132/80
[2019-09-15] MEDS: DOXYCYCLINE HYCLATE 100 MG in D5W MINI-BAG PLUS 100 ML IV SCH ×2 (09:55→21:05)
[2019-09-15] MEDS: ENOXAPARIN 40MG/0.4ML SYRINGE (J1650 PER 10MG) SC SCH (09:55)
[2019-09-15] MEDS: MEMANTINE 5MG TABLET (NAMENDA) PO SCH ×2 (09:56→21:04)
--- NOTE | 2019-09-15 11:33 | IPNPDOC ---
Date Seen The patient was seen on 09/15/19. Progress Note SUBJECTIVE: 69 y.o male w/ PMH of Alzheimer's dementia is admitted for Pneumonia. Patient seen in the morning, comfortable, pleasantly demented, without complaints at this time. He [facility] hopefully tomorrow. Unable to perform a complete review of system, given advanced dementia. PHYSICAL EXAMINATION: VITAL SIGNS: Please see below. GENERAL: No distress HEENT: Normocephalic, atraumatic, moist mucous membranes NECK: Supple CARDIOVASCULAR EXAMINATION: S1, S2 RESPIRATORY EXAMINATION: Scattered rhonchi, no wheezing ABDOMINAL EXAMINATION: Soft, nontender, nondistended, positive bowel sounds EXTREMITIES: Trace edema SKIN: No rash NEUROLOGICAL EXAMINATION: Oriented to self PSYCHIATRIC EXAMINATION: Calm LABORATORY DATA, IMAGING STUDIES, MICROBIOLOGY: Please see below. ASSESSMENT AND PLAN: 69-year-old male with past medical history of Alzheimer's [facility] is admitted for pneumonia. PROBLEMS: 1. Pneumonia: Continue ceftriaxone and doxycycline 2. Alzheimer's dementia: Continue memantine and Aricept. Patient is getting difficult for his to care for at home, requesting long-term placement, social worker masters arranging. DVT prophylaxis: Lovenox VS, I&O, 24H, Fishbone Vital Signs/I&O Vital Signs Date Time Temp Pulse Resp B/P (MAP) Pulse Ox O2 Delivery O2 Flow Rate FiO2 09/15/19 08:00 99.0 87 16 132/80 (97) 95 Room Air 09/13/19 12:00 3.0 I&O- Last 24 Hours up to 6 AM 09/15/19 06:00 Intake Total 570 ml Output Total 0 ml Balance 570 ml Laboratory Data 24H LABS Laboratory Tests 2 09/15/19 03:08: Nucleated Red Blood Cells % (auto) 0.0, Anion Gap 6L, Glomerular Filtration Rate > 60.0, Calcium Level 7.8L CBC/BMP Laboratory Tests 09/15/19 03:08 Microbiology Microbiology 09/12/19 Blood Culture - Preliminary, Resulted No Growth after 48 hours. All Specime... 09/12/19 Blood Culture - Preliminary, Resulted No Growth after 48 hours. All Specime... BEVERLEY PALACIO MD September 15, 2019 11:03
[2019-09-15 12:00] VITALS: BP 127/84
[2019-09-15 16:00] VITALS: BP 121/87
[2019-09-15] MEDS: cefTRIAXone SOD 1 GM in D5W MINI-BAG PLUS 50 ML IV SCH (18:20)
[2019-09-15 20:00] VITALS: BP 141/64
[2019-09-15] MEDS: QUEtiapine FUMARATE 25 MG TAB PO SCH (21:04)
[2019-09-15] MEDS: DONEPEZIL 5 MG TAB PO SCH (21:04)
[2019-09-16] VITALS: BP 110/69
[2019-09-16 04:00] VITALS: BP 134/81
[2019-09-16] MEDS: SLF 3 ML SYR IV SCH ×3 (05:16→20:44)
[2019-09-16 05:35] LABS: HEMATOCRIT 36.3 % (42.0-52.0); HEMOGLOBIN 12.5 g/dl (13.5-17.5); MEAN CORPUSCULAR HEMOGLOBIN 29.8 pg (27.0-33.0); MEAN CORPUSCULAR HGB CONC 34.4 g/dl (32.0-36.5); MEAN CORPUSCULAR VOLUME 86.4 fl (80.0-96.0); PLATELET COUNT, AUTOMATED 204 10^3/uL (150-450); WHITE BLOOD COUNT 6.3 10^3/uL (4.0-10.0)
[2019-09-16 05:54] LABS: BLOOD UREA NITROGEN 12 MG/DL (7-18); CALCIUM LEVEL 7.7 MG/DL (8.8-10.2); CARBON DIOXIDE LEVEL 28 MEQ/L (21-32); CHLORIDE LEVEL 106 MEQ/L (98-107); GLOMERULAR FILTRATION RATE > 60.0 (>49); GLUCOSE, FASTING 121 MG/DL (70-100); POTASSIUM SERUM 4.2 MEQ/L (3.5-5.1); SODIUM LEVEL 141 MEQ/L (136-145)
[2019-09-16 08:00] VITALS: BP 134/76
[2019-09-16] MEDS: CEFDINIR 300 MG CAP (OMNICEF) PO SCH ×2 (09:16→20:43)
[2019-09-16] MEDS: MEMANTINE 5MG TABLET (NAMENDA) PO SCH ×2 (09:16→20:43)
[2019-09-16] MEDS: ENOXAPARIN 40MG/0.4ML SYRINGE (J1650 PER 10MG) SC SCH (09:16)
[2019-09-16] MEDS: DOXYCYCLINE HYCLATE 100MG TABLET PO SCH ×2 (09:16→20:44)
--- NOTE | 2019-09-16 11:19 | IPNPDOC ---
Date Seen The patient was seen on 09/16/19. Progress Note SUBJECTIVE: Patient was seen and examined at the bedside this morning. He is pleasantly demented, does not answer any questions. Per nursing, no issues overnight. Vitals are stable and patient is on room air. He is now SNF status as he waits for placement. OBJECTIVE PHYSICAL EXAMINATION: VITAL SIGNS: Please see below. GENERAL APPEARANCE: Laying in bed, appears stated age, no acute distress, calm, non-verbal HEENT: EOMI, PERRLA, neck is supple with no thyromegaly or lymphadenopathy RESPIRATORY: Lungs are clear to auscultation bilaterally with some scattered rhonchi bilaterally CARDIOVASCULAR: no JVD, RRR ,no murmurs/rubs/gallops, normal S1, normal S2 ABDOMEN: Soft, +BS, nontender to palpation in all four quadrants, no masses/organomegaly EXTREMITIES: no clubbing, cyanosis or edema noted NEUROLOGICAL: No obvious focal deficits PSYCHIATRIC: normal mood/affect Skin: No rashes or ulcers. LN: No significant cervical or inguinal lymphadenopathy LABORATORY DATA, IMAGING STUDIES, MICROBIOLOGY: Please see below. ASSESSMENT AND PLAN: This is a 69 YO M with history of Alzheimer's dementia and dyslipidemia who presented with possible encephalopathy found to have community- acquired PNA. PROBLEMS: 1. Community-acquired PNA: -IV abx switched to oral doxycycline (day 09/18), Cefdinir (day 08/19) -continue mechanical soft diet. No concern -Patient is on room air at this time 2. Questionable encephalopathy: -Patient appears to be at baseline at this time. 3. Alzheimer's dementia: -Continue Seroquel, Memantine, Donepezil DVT ppx: Lovenox DISPOSITION: Patient has been made SNF status. Pending placement. Attending attestation: I evaluated and examined the patient in person; I discussed the care with Resident in detail and agree with the plan above. VS, I&O, 24H, Fishbone Vital Signs/I&O Vital Signs Date Time Temp Pulse Resp B/P (MAP) Pulse Ox O2 Delivery O2 Flow Rate FiO2 09/16/19 08:00 98.3 82 17 134/76 (95) 96 Room Air 09/13/19 12:00 3.0 I&O- Last 24 Hours up to 6 AM 09/16/19 06:00 Intake Total 780 ml Output Total 0 ml Balance 780 ml Laboratory Data 24H LABS Laboratory Tests 2 09/16/19 05:11: Nucleated Red Blood Cells % (auto) 0.0, Anion Gap 7L, Glomerular Filtration Rate > 60.0, Calcium Level 7.7L CBC/BMP Laboratory Tests 09/16/19 05:11 Microbiology Microbiology 09/12/19 Blood Culture - Preliminary, Resulted No Growth after 72 hours. All specime... 09/12/19 Blood Culture - Preliminary, Resulted No Growth after 72 hours. All specime... GME ATTESTATION GME ATTESTATION My faculty preceptor for this patient encounter was physically present during the encounter and was fully available. All aspects of the patient interview, examination, medical decision making process, and medical care plan development were reviewed and approved by the faculty preceptor. The faculty preceptor is aware and concurs with the plan as stated in the body of this note and will attest to such by his/her cosignature. JOSE WISE MD September 16, 2019 11:19 BEVERLEY PALACIO MD September 17, 2019 19:46
[2019-09-16 12:00] VITALS: BP 130/74
[2019-09-16 20:00] VITALS: BP 115/70
[2019-09-16] MEDS: QUEtiapine FUMARATE 25 MG TAB PO SCH (20:43)
[2019-09-16] MEDS: DONEPEZIL 5 MG TAB PO SCH (20:43)
[2019-09-17] VITALS: BP 133/71
[2019-09-17 04:00] VITALS: BP 114/70
[2019-09-17] MEDS: SLF 3 ML SYR IV SCH (04:03)
[2019-09-17 05:17] LABS: HEMOGLOBIN 12.5 g/dl (13.5-17.5); MEAN CORPUSCULAR HEMOGLOBIN 28.9 pg (27.0-33.0); MEAN CORPUSCULAR HGB CONC 33.8 g/dl (32.0-36.5); MEAN CORPUSCULAR VOLUME 85.6 fl (80.0-96.0); PLATELET COUNT, AUTOMATED 219 10^3/uL (150-450); RED BLOOD COUNT 4.32 10^6/uL (4.30-6.10); WHITE BLOOD COUNT 4.6 10^3/uL (4.0-10.0)
[2019-09-17 05:33] LABS: BLOOD UREA NITROGEN 11 MG/DL (7-18); CALCIUM LEVEL 8.2 MG/DL (8.8-10.2); CARBON DIOXIDE LEVEL 25 MEQ/L (21-32); CHLORIDE LEVEL 107 MEQ/L (98-107); CREATININE FOR GFR 0.76 MG/DL (0.70-1.30); GLOMERULAR FILTRATION RATE > 60.0 (>49); GLUCOSE, FASTING 98 MG/DL (70-100); POTASSIUM SERUM 3.9 MEQ/L (3.5-5.1); SODIUM LEVEL 139 MEQ/L (136-145)
[2019-09-17 08:00] VITALS: BP 118/73
[2019-09-17] MEDS: MEMANTINE 5MG TABLET (NAMENDA) PO SCH (09:19)
[2019-09-17] MEDS: CEFDINIR 300 MG CAP (OMNICEF) PO SCH (09:20)
[2019-09-17] MEDS: DOXYCYCLINE HYCLATE 100MG TABLET PO SCH (09:20)
[2019-09-17] MEDS: ENOXAPARIN 40MG/0.4ML SYRINGE (J1650 PER 10MG) SC SCH (09:20)
[2019-09-17] MEDS ORDERED: DOXY100T PO (10:07)
[2019-09-17] MEDS ORDERED: ARIC1TAB PO (10:07)
[2019-09-17] MEDS ORDERED: CEFD300CAP PO (10:07)
--- NOTE | 2019-09-17 13:05 | DS.PDOC ---
Discharge Summary General Date of Admission Sep 12, 2019 at 19:30 Date of Discharge September 17, 2019 Attending Physician: BEVERLEY PALACIO MD Discharge Summary PROCEDURES PERFORMED DURING STAY: [None]. ADMITTING DIAGNOSES: 1. Bilateral PNA 2. Metabolic encephalopathy DISCHARGE DIAGNOSES: 1. Bilateral PNA COMPLICATIONS/CHIEF COMPLAINT: Metabolic Encephalopathy Pneumonia. HISTORY OF PRESENT ILLNESS: The majority of the history is obtained from Dr. Wright & the patient's ; the patient has Alzheimer's & currently confused. This 63-year-old gentleman was last admitted on August 16 for management of UTI associated with encephalopathy. EMS brought into the hospital after they were called to evaluate him because he is complaining of left lower quadrant abdominal pain. During his stay in the ER, he has been intermittently arousable but is not following commands or answering questions. I called his who reported that he was c/o of left lower abdominal pain; he has also been more confused compared to his baseline with fevers. She also added that he has more difficulties walking over the last 2 weeks and feeding himself since his last hospital admission; prior to that he was able to walk slowly and feed himself. HOSPITAL COURSE: The patient was admitted for treatment of presumed bilateral PNA. He was given IV Rocephin and doxycycline. He was seen by speech therapy, w ho recommended mechanical soft diet. There was question of whether the patient had encephalopathy, but per notes the patient was identified by staff who had worked with him before and by family to be at his baseline mental status, which is 2/2 alzheimer's dementia. His home medication was continued. On hospital day #5 the patient was transitioned to oral antibiotics and he was discharged to [facility] in stable state. DISCHARGE MEDICATIONS: Please see below. ALLERGIES: Please see below. PHYSICAL EXAMINATION ON DISCHARGE: VITAL SIGNS: Please see below. GENERAL APPEARANCE: Laying in bed, appears stated age, no acute distress, calm, non-verbal HEENT: EOMI, PERRLA, neck is supple with no thyromegaly or lymphadenopathy RESPIRATORY: Lungs are clear to auscultation bilaterally with some scattered r honchi bilaterally CARDIOVASCULAR: no JVD, RRR ,no murmurs/rubs/gallops, normal S1, normal S2 ABDOMEN: Soft, +BS, nontender to palpation in all four quadrants, no masses/organomegaly EXTREMITIES: no clubbing, cyanosis or edema noted NEUROLOGICAL: No obvious focal deficits PSYCHIATRIC: normal mood/affect Skin: No rashes or ulcers. LN: No significant cervical or inguinal lymphadenopathy LABORATORY DATA: Please see below. IMAGING: CT ABD/PEL W/O CONTRAST: REASON FOR EXAM: Left lower quadrant pain. There are no priors for comparison. The lack of intravenous contrast and oral bowel preparatory contrast decreases the sensitivity of the exam. There are patchy bibasilar opacities seen in the lung holden along with small, right slightly greater than left, pleural effusions. Limited evaluation of the solid intra-abdominal organs shows what is likely a 1.5 cm sized simple cyst in the anterior segment of the right lobe of the liver. The gallbladder is unremarkable in appearance. The spleen is within normal limits. The pancreas is seen in a limited fashion, but there are no gross abnormalities. No gross abnormalities are seen involving the adrenal glands or kidneys. There is no evidence of nephroureteral lithiasis, hydronephrosis, or hydroureter. There are no urinary bladder calcifications. Limited evaluation of the abdominal aorta and para-aortic regions shows no gross abnormalities. There is no evidence of free fluid or free air in the abdomen or pelvis. Limited evaluation of the intra-abdominal and intrapelvic bowel loops and their mesenteries shows no gross abnormalities. There are a few scattered gas and fluid-filled small bowel loops in the abdomen in a nonspecific fashion. Bone window technique throughout the exam shows chronic spinal, hip, and sacroiliac joint degenerative changes. IMPRESSION: Bibasilar lung field opacities and tiny pleural effusions as described above. Basilar pneumonia cannot be ruled out, particularly on the right. Possible mild small bowel ileus. Other findings and limitations as described above. CHEST, SINGLE VIEW: Single view of the chest is performed and compared to prior study of 08/21/2019. There is mild atelectasis/infiltrate in the right lung base. No definite new infiltrate is seen on the left. There is mild left ventricular prominence, unchanged. Mediastinal silhouette is unchanged. IMPRESSION: Right base atelectasis/infiltrate. PROGNOSIS: fair ACTIVITY: [As tolerated]. DIET: as tolerated DISCHARGE PLAN: [facility] DISPOSITION: 01 Home, Self-Care. DISCHARGE INSTRUCTIONS: 1. Follow up with PCP within 7 days ITEMS TO FOLLOWUP ON ON OUTPATIENT: 1. none DISCHARGE CONDITION: [Stable]. TIME SPENT ON DISCHARGE: Greater than 35 minutes. Attending attestation: I evaluated and examined the patient in person; I discussed the care with Resident in detail and agree with the plan above. Vital Signs/I&Os Vital Signs Date Time Temp Pulse Resp B/P (MAP) Pulse Ox O2 Delivery O2 Flow Rate FiO2 09/17/19 08:00 98.1 73 16 118/73 (88) 94 Room Air 09/13/19 12:00 3.0 I&O- Last 24 Hours up to 6 AM 09/17/19 06:00 Intake Total 540 ml Balance 540 ml Laboratory Data Labs 24H Laboratory Tests 2 09/17/19 04:42: Nucleated Red Blood Cells % (auto) 0.0, Anion Gap 7L, Glomerular Filtration Rate > 60.0, Calcium Level 8.2L CBC/BMP Laboratory Tests 09/17/19 04:42 Microbiology Microbiology 09/12/19 Blood Culture - Preliminary, Resulted No Growth after 72 hours. All specime... 09/12/19 Blood Culture - Preliminary, Resulted No Growth after 72 hours. All specime... Discharge Medications Scheduled Cefdinir (Cefdinir) 300 Mg Capsule, 300 MG PO BID Donepezil HCl (Aricept) 5 Mg Tablet, 10 MG PO QHS Doxycycline Hyclate (Doxycycline Hyclate) 100 Mg Tablet, 100 MG PO BID Flaxseed Oil (Linseed Oil) 1 Ml Oil, 10 ML PO DAILY, (Reported) PUT IN CEREAL OR APPLESAUCE Jocelyn Root (Jocelyn Root) 550 Mg Capsule, 550 MG PO DAILY, (Reported) OPEN CAPSULE AND SPRINKLE IN APPLESAUCE OR CEREAL Memantine HCl/Donepezil HCl (Namzaric 28 mg-10 mg Capsule) 1 Each Cap.spr.24, 1 CAP PO DAILY, (Reported) OPEN CAPSULE AND SPRINKLE IN APPLESAUCE OR CEREAL Quetiapine Fumarate (Seroquel) 50 Mg Tablet, 25 MG PO QPM, (Reported) CRUSH IN APPLESAUCE Allergies Coded Allergies: iodine (Verified Allergy, Mild, rash, 09/12/19) latex (Verified Allergy, Mild, 09/12/19) Celery (Verified Allergy, Unknown, 08/17/19) GME ATTESTATION GME ATTESTATION My faculty preceptor for this patient encounter was physically present during the encounter and was fully available. All aspects of the patient interview, ex amination, medical decision making process, and medical care plan development were reviewed and approved by the faculty preceptor. The faculty preceptor is aware and concurs with the plan as stated in the body of this note and will attest to such by his/her cosignature. JOSE WISE MD September 17, 2019 13:05 BEVERLEY PALACIO MD September 17, 2019 20:07
== END 2019-09-17 11:07 | DRG 195 ==
LOC: M ED 14:37 → EDBD 14:37 → M ED INP 19:30 → ENRESERV 19:58 → M PCU 20:58
PROVIDERS: ADMIT Internal Medicine; ATTEND Internal Medicine
DX: J18.9 Pneumonia, unspecified organism (principal); G30.9 Alzheimer's disease, unspecified; F02.80 Dementia in other diseases classified elsewhere, unspecified severity, without behavioral disturbance, psychotic disturbance, mood disturbance, and anxiety; E66.9 Obesity, unspecified; E78.5 Hyperlipidemia, unspecified; Z79.899 Other long term (current) drug therapy; Z88.8 Allergy status to other drugs, medicaments and biological substances; Z91.040 Latex allergy status; Z91.018 Allergy to other foods; Z68.30 Body mass index [BMI] 30.0-30.9, adult

== ENCOUNTER → 2019-09-24 | Outpatient (REF) | payer MEDICARE, OTHER ==
[~2019-09-24] MED LIST changes: +ARIC1TAB PO; +CEFD300CAP PO; +DOXY100T PO; +GING1CAP PO; +SERO50TA PO; +[UNRECOGNIZED DRUG - OTHER] PO
[2019-09-24 10:56] LABS: HEMATOCRIT 45.5 % (42.0-52.0); HEMOGLOBIN 15.4 g/dl (13.5-17.5); MEAN CORPUSCULAR HEMOGLOBIN 29.6 pg (27.0-33.0); MEAN CORPUSCULAR HGB CONC 33.8 g/dl (32.0-36.5); MEAN CORPUSCULAR VOLUME 87.3 fl (80.0-96.0); PLATELET COUNT, AUTOMATED 372 10^3/uL (150-450); RED BLOOD COUNT 5.21 10^6/uL (4.30-6.10); WHITE BLOOD COUNT 7.6 10^3/uL (4.0-10.0)
[2019-09-24 11:28] LABS: BLOOD UREA NITROGEN 13 MG/DL (7-18); CALCIUM LEVEL 9.2 MG/DL (8.8-10.2); CARBON DIOXIDE LEVEL 27 MEQ/L (21-32); CHLORIDE LEVEL 104 MEQ/L (98-107); CREATININE FOR GFR 1.03 MG/DL (0.70-1.30); GLOMERULAR FILTRATION RATE > 60.0 (>49); GLUCOSE, FASTING 96 MG/DL (70-100); POTASSIUM SERUM 4.1 MEQ/L (3.5-5.1); SODIUM LEVEL 139 MEQ/L (136-145)
== END ==
PROVIDERS: ATTEND Family Medicine
DX: J18.9 Pneumonia, unspecified organism (principal); Y95 Nosocomial condition

== ENCOUNTER → 2019-10-01 | Outpatient (REF) ==
[~2019-10-01] MED LIST changes: +APAP325T4 PO; +BISA10SU20 PR; +DONE10TA90 PO; +ENEMENE PR; +KEPP1TAB PO; +MEMA10TA19 PO; +MILKSUS3 PO; +QUET50TA3 PO; -QUET5TAB PO
== END ==
PROVIDERS: ATTEND Internal Medicine
DX: Z03.818 Encounter for observation for suspected exposure to other biological agents ruled out (principal)

== ENCOUNTER → 2019-10-01 | Outpatient (REF) | payer MEDICARE, OTHER ==
[~2019-10-01] MED LIST changes: -APAP325T4 PO; -BISA10SU20 PR; -DONE10TA90 PO; -ENEMENE PR; -KEPP1TAB PO; -MEMA10TA19 PO; -MILKSUS3 PO; -QUET50TA3 PO; +QUET5TAB PO
[2019-10-01 10:57] LABS: HEMATOCRIT 46.2 % (42.0-52.0); MEAN CORPUSCULAR HEMOGLOBIN 30.2 pg (27.0-33.0); MEAN CORPUSCULAR HGB CONC 34.6 g/dl (32.0-36.5); MEAN CORPUSCULAR VOLUME 87.2 fl (80.0-96.0); PLATELET COUNT, AUTOMATED 266 10^3/uL (150-450); WHITE BLOOD COUNT 7.1 10^3/uL (4.0-10.0)
[2019-10-01 11:27] LABS: BLOOD UREA NITROGEN 12 MG/DL (7-18); CALCIUM LEVEL 8.9 MG/DL (8.8-10.2); CARBON DIOXIDE LEVEL 27 MEQ/L (21-32); CHLORIDE LEVEL 106 MEQ/L (98-107); CREATININE FOR GFR 0.97 MG/DL (0.70-1.30); GLOMERULAR FILTRATION RATE > 60.0 (>49); GLUCOSE, FASTING 92 MG/DL (70-100); POTASSIUM SERUM 4.3 MEQ/L (3.5-5.1); SODIUM LEVEL 139 MEQ/L (136-145)
== END ==
PROVIDERS: ATTEND Physician Assistant
DX: J18.9 Pneumonia, unspecified organism (principal)

== ENCOUNTER → 2019-10-29 | Outpatient (REF) | payer MEDICARE, OTHER ==
[2019-10-29 13:12] LABS: BLOOD UREA NITROGEN 14 MG/DL (7-18); CALCIUM LEVEL 9.2 MG/DL (8.8-10.2); CARBON DIOXIDE LEVEL 24 MEQ/L (21-32); CHLORIDE LEVEL 105 MEQ/L (98-107); CREATININE FOR GFR 0.85 MG/DL (0.70-1.30); GLOMERULAR FILTRATION RATE > 60.0 (>49); GLUCOSE, FASTING 74 MG/DL (70-100); POTASSIUM SERUM 5.2 MEQ/L (3.5-5.1); SODIUM LEVEL 137 MEQ/L (136-145)
[2019-10-29 13:32] LABS: HEMATOCRIT 53.5 % (42.0-52.0); HEMOGLOBIN 17.6 g/dl (13.5-17.5); MEAN CORPUSCULAR HEMOGLOBIN 28.9 pg (27.0-33.0); MEAN CORPUSCULAR HGB CONC 32.9 g/dl (32.0-36.5); PLATELET COUNT, AUTOMATED 181 10^3/uL (150-450); RED BLOOD COUNT 6.08 10^6/uL (4.30-6.10); WHITE BLOOD COUNT 5.2 10^3/uL (4.0-10.0)
== END ==
PROVIDERS: ATTEND Physician Assistant
DX: J18.9 Pneumonia, unspecified organism (principal)

== ENCOUNTER → 2019-10-30 | Outpatient (REF) | payer MEDICARE, OTHER | PROVIDERS: ATTEND Family Medicine | DX: Z51.81 Encounter for therapeutic drug level monitoring (principal); Z79.899 Other long term (current) drug therapy ==

== ENCOUNTER → 2020-02-26 | Outpatient (REF) | payer MEDICARE, OTHER ==
[2020-02-26 10:45] LABS: HEMATOCRIT 48.6 % (42.0-52.0); HEMOGLOBIN 16.4 g/dl (13.5-17.5); MEAN CORPUSCULAR HEMOGLOBIN 29.7 pg (27.0-33.0); MEAN CORPUSCULAR HGB CONC 33.7 g/dl (32.0-36.5); PLATELET COUNT, AUTOMATED 181 10^3/uL (150-450); RED BLOOD COUNT 5.52 10^6/uL (4.30-6.10)
[2020-02-26 11:12] LABS: BLOOD UREA NITROGEN 12 MG/DL (7-18); CALCIUM LEVEL 9.1 MG/DL (8.8-10.2); CARBON DIOXIDE LEVEL 26 MEQ/L (21-32); CHLORIDE LEVEL 108 MEQ/L (98-107); CREATININE FOR GFR 1.05 MG/DL (0.70-1.30); GLOMERULAR FILTRATION RATE > 60.0 (>49); GLUCOSE, FASTING 87 MG/DL (70-100); POTASSIUM SERUM 4.1 MEQ/L (3.5-5.1); SODIUM LEVEL 141 MEQ/L (136-145)
== END ==
PROVIDERS: ATTEND Physician Assistant
DX: G30.9 Alzheimer's disease, unspecified (principal)

== ENCOUNTER → 2020-03-12 | Outpatient (REF) ==
[2020-03-12 09:47] LABS: HEMATOCRIT 43.9 % (42.0-52.0); HEMOGLOBIN 14.9 g/dl (13.5-17.5); MEAN CORPUSCULAR HGB CONC 33.9 g/dl (32.0-36.5); MEAN CORPUSCULAR VOLUME 88.3 fl (80.0-96.0); PLATELET COUNT, AUTOMATED 181 10^3/uL (150-450); RED BLOOD COUNT 4.97 10^6/uL (4.30-6.10); WHITE BLOOD COUNT 5.2 10^3/uL (4.0-10.0)
[2020-03-12 10:10] LABS: BLOOD UREA NITROGEN 12 MG/DL (7-18); CALCIUM LEVEL 8.5 MG/DL (8.8-10.2); CARBON DIOXIDE LEVEL 26 MEQ/L (21-32); CHLORIDE LEVEL 109 MEQ/L (98-107); CREATININE FOR GFR 1.13 MG/DL (0.70-1.30); GLOMERULAR FILTRATION RATE > 60.0 (>49); GLUCOSE, FASTING 79 MG/DL (70-100); POTASSIUM SERUM 4.2 MEQ/L (3.5-5.1); SODIUM LEVEL 142 MEQ/L (136-145)
== END ==
PROVIDERS: ATTEND Internal Medicine
DX: J18.9 Pneumonia, unspecified organism (principal)

== ENCOUNTER → 2020-03-26 | Outpatient (REF) | PROVIDERS: ATTEND Internal Medicine | DX: Z20.828 Contact with and (suspected) exposure to other viral communicable diseases (principal) ==

== ENCOUNTER → 2020-04-02 | Outpatient (REF) | payer MEDICARE, OTHER ==
[~2020-04-02] MED LIST changes: +APAP325T4 PO; +BISA10SU20 PR; +DONE10TA90 PO; +ENEMENE PR; +KEPP1TAB PO; +MEMA10TA19 PO; +MILKSUS3 PO; +QUET50TA3 PO; -QUET5TAB PO
== END ==
LOC: EDSTATUS 05-11 11:52
PROVIDERS: ATTEND Internal Medicine
DX: Z20.828 Contact with and (suspected) exposure to other viral communicable diseases (principal)

== ENCOUNTER → 2020-04-07 | Outpatient (REF) ==
[~2020-04-07] MED LIST changes: -APAP325T4 PO; -BISA10SU20 PR; -DONE10TA90 PO; -ENEMENE PR; -KEPP1TAB PO; -MEMA10TA19 PO; -MILKSUS3 PO; -QUET50TA3 PO; +QUET5TAB PO
[2020-04-07 11:42] LABS: HEMATOCRIT 49.2 % (42.0-52.0); HEMOGLOBIN 17.1 g/dl (13.5-17.5); MEAN CORPUSCULAR HEMOGLOBIN 30.8 pg (27.0-33.0); MEAN CORPUSCULAR HGB CONC 34.8 g/dl (32.0-36.5); MEAN CORPUSCULAR VOLUME 88.5 fl (80.0-96.0); PLATELET COUNT, AUTOMATED 179 10^3/uL (150-450); RED BLOOD COUNT 5.56 10^6/uL (4.30-6.10)
[2020-04-07 12:06] LABS: BLOOD UREA NITROGEN 11 MG/DL (7-18); CALCIUM LEVEL 8.8 MG/DL (8.8-10.2); CARBON DIOXIDE LEVEL 27 MEQ/L (21-32); CHLORIDE LEVEL 107 MEQ/L (98-107); CREATININE FOR GFR 1.06 MG/DL (0.70-1.30); GLOMERULAR FILTRATION RATE > 60.0 (>49); GLUCOSE, FASTING 98 MG/DL (70-100); POTASSIUM SERUM 3.9 MEQ/L (3.5-5.1); SODIUM LEVEL 140 MEQ/L (136-145)
== END ==
PROVIDERS: ATTEND Internal Medicine
DX: J18.9 Pneumonia, unspecified organism (principal)

== ENCOUNTER → 2020-04-08 | Outpatient (REF) | payer MEDICARE, OTHER ==
[~2020-04-08] MED LIST changes: +APAP325T4 PO; +BISA10SU20 PR; +DONE10TA90 PO; +ENEMENE PR; +KEPP1TAB PO; +MEMA10TA19 PO; +MILKSUS3 PO; +QUET50TA3 PO; -QUET5TAB PO
== END ==
PROVIDERS: ATTEND Internal Medicine
DX: Z20.828 Contact with and (suspected) exposure to other viral communicable diseases (principal)

== ENCOUNTER → 2020-04-26 | Outpatient (REF) ==
[~2020-04-26] MED LIST changes: -APAP325T4 PO; -BISA10SU20 PR; -DONE10TA90 PO; -ENEMENE PR; -KEPP1TAB PO; -MEMA10TA19 PO; -MILKSUS3 PO; -QUET50TA3 PO; +QUET5TAB PO
== END ==
PROVIDERS: ATTEND Internal Medicine
DX: Z20.828 Contact with and (suspected) exposure to other viral communicable diseases (principal)

== ENCOUNTER → 2020-04-30 | Outpatient (REF) | payer MEDICARE, OTHER | PROVIDERS: ATTEND Internal Medicine | DX: Z20.828 Contact with and (suspected) exposure to other viral communicable diseases (principal) ==

== ENCOUNTER → 2020-05-06 | Outpatient (REF) | payer MEDICARE, OTHER | PROVIDERS: ATTEND Internal Medicine | DX: Z20.828 Contact with and (suspected) exposure to other viral communicable diseases (principal) ==

== ENCOUNTER → 2020-05-12 | Outpatient (REF) | payer MEDICARE, OTHER | PROVIDERS: ATTEND Internal Medicine | DX: Z20.828 Contact with and (suspected) exposure to other viral communicable diseases (principal) ==

== ENCOUNTER → 2020-05-18 | Outpatient (REF) | payer MEDICARE, OTHER | PROVIDERS: ATTEND Internal Medicine | DX: Z11.52 Encounter for screening for COVID-19 (principal) ==

== ENCOUNTER → 2020-05-22 | Outpatient (REF) | payer MEDICARE, OTHER ==
[~2020-05-22] MED LIST changes: +APAP325T4 PO; +BISA10SU20 PR; +DONE10TA90 PO; +ENEMENE PR; +KEPP1TAB PO; +MEMA10TA19 PO; +MILKSUS3 PO
== END ==
PROVIDERS: ATTEND Internal Medicine
DX: Z20.822 Contact with and (suspected) exposure to COVID-19 (principal)

== ENCOUNTER → 2020-05-27 | Outpatient (REF) | payer MEDICARE, OTHER | PROVIDERS: ATTEND Internal Medicine | DX: Z20.822 Contact with and (suspected) exposure to COVID-19 (principal) ==

== ENCOUNTER → 2020-06-03 | Outpatient (REF) | payer MEDICARE, OTHER | PROVIDERS: ATTEND Internal Medicine | DX: Z20.822 Contact with and (suspected) exposure to COVID-19 (principal) ==

== ENCOUNTER → 2020-06-08 | Outpatient (REF) | payer MEDICARE, OTHER ==
[~2020-06-08] MED LIST changes: +QUET50TA3 PO; -QUET5TAB PO
[2020-06-08 10:05] LABS: HEMATOCRIT 48.6 % (42.0-52.0); HEMOGLOBIN 16.9 g/dl (13.5-17.5); MEAN CORPUSCULAR HEMOGLOBIN 30.5 pg (27.0-33.0); MEAN CORPUSCULAR HGB CONC 34.8 g/dl (32.0-36.5); MEAN CORPUSCULAR VOLUME 87.7 fl (80.0-96.0); PLATELET COUNT, AUTOMATED 195 10^3/uL (150-450); RED BLOOD COUNT 5.54 10^6/uL (4.30-6.10); WHITE BLOOD COUNT 5.7 10^3/uL (4.0-10.0)
[2020-06-08 10:47] LABS: BLOOD UREA NITROGEN 15 MG/DL (7-18); CALCIUM LEVEL 8.9 MG/DL (8.8-10.2); CARBON DIOXIDE LEVEL 31 MEQ/L (21-32); CHLORIDE LEVEL 105 MEQ/L (98-107); CREATININE FOR GFR 1.07 MG/DL (0.70-1.30); GLOMERULAR FILTRATION RATE > 60.0 (>49); GLUCOSE, FASTING 75 MG/DL (70-100); POTASSIUM SERUM 4.3 MEQ/L (3.5-5.1); SODIUM LEVEL 140 MEQ/L (136-145)
== END ==
PROVIDERS: ATTEND Internal Medicine
DX: J18.9 Pneumonia, unspecified organism (principal)

== ENCOUNTER 2020-06-09 07:35 | Inpatient (IN) | payer MEDICARE, OTHER ==
[~2020-06-09] VITALS: Ht 175.3 cm; Wt 93.5 kg
[~2020-06-09 07:35] MED LIST changes: -APAP325T4 PO; -BISA10SU20 PR; -DONE10TA90 PO; -ENEMENE PR; -KEPP1TAB PO; -MEMA10TA19 PO; -MILKSUS3 PO; -QUET50TA3 PO; +QUET5TAB PO
[2020-06-09] MEDS ORDERED: NS 1,000 ML IV ONE (08:00)
--- NOTE | 2020-06-09 08:22 | REP ---
INDICATION: Altered Mental Status COMPARISON: 08/17/2019 TECHNIQUE: Axial noncontrast images from the skull base to the thoracic inlet with coronal reformations. This CT examination was performed using the following dose reduction techniques: Automated exposure control, adjustment of mA and/or kv according to the patient's size, and use of iterative reconstruction technique. FINDINGS: Age-related atrophy and microvascular ischemic changes are appreciated. The ventricles and sulci are symmetric. Prince-white differentiation is maintained. There is no evidence for acute intracranial hemorrhage, mass/mass effect, pathology or infarction. No extra-axial fluid collection. Calvarium is intact. Paranasal sinuses and mastoid air cells are clear. IMPRESSION: Age related atrophy and microvascular ischemic changes. No acute intracranial hemorrhage, infarction, or mass/mass effect. <Electronically signed by Benny Michelle > 06/09/20 [id number]
--- NOTE | 2020-06-09 08:24 | REP ---
INDICATION: Altered Mental Status COMPARISON: 09/12/2019 TECHNIQUE: Portable AP view of the chest FINDINGS: The mediastinum and cardiac silhouette are stable and within normal limits for portable technique. Evaluation is somewhat limited due to portable technique/underpenetration and poor inspiratory effort. No obvious focal consolidation, effusion, or pneumothorax. Skeletal structures are intact.. IMPRESSION: No acute cardiopulmonary process appreciated. <Electronically signed by Benny Michelle > 06/09/20 0822
[2020-06-09 08:28] LABS: BASO % 0.2 % (0.0-1.0); EOS % 0.1 % (0.0-3.0); HEMATOCRIT 46.7 % (42.0-52.0); LYMPH # 0.3 10^3/uL (1.5-5.0); LYMPH % 2.9 % (24.0-44.0); MEAN CORPUSCULAR HEMOGLOBIN 29.9 pg (27.0-33.0); MEAN CORPUSCULAR HGB CONC 34.3 g/dl (32.0-36.5); MEAN CORPUSCULAR VOLUME 87.1 fl (80.0-96.0); MONO # 0.4 10^3/uL (0.0-0.8); MONO % 4.3 % (0.0-5.0); NEUTROPHILS # 8.3 10^3/uL (1.5-8.5); NEUTROPHILS % 92.1 % (36.0-66.0); PLATELET COUNT, AUTOMATED 163 10^3/uL (150-450); RED BLOOD COUNT 5.36 10^6/uL (4.30-6.10)
[2020-06-09] MEDS ORDERED: BISA10SU20 PR (08:30)
[2020-06-09] MEDS ORDERED: ENEMENE PR (08:30)
[2020-06-09] MEDS ORDERED: MEMA10TA19 PO (08:30)
[2020-06-09] MEDS ORDERED: DONE10TA90 PO (08:30)
[2020-06-09] MEDS ORDERED: MILKSUS3 PO (08:30)
[2020-06-09] MEDS ORDERED: APAP325T4 PO (08:30)
[2020-06-09 09:02] LABS: CK-MB VALUE MASS 1.3 NG/ML (<3.6); CPK CREATINE PHOSPHOKINASE 106 U/L (39-308); MB/CK RELATIVE INDEX 1.23 (< OR =4); TROPONIN I < 0.02 NG/ML (< 0.10)
--- NOTE | 2020-06-09 09:13 | REP ---
INDICATION: AMS COMPARISON: None TECHNIQUE: Axial noncontrast images from the thoracic inlet to the upper abdomen with coronal and sagittal reformations. This CT examination was performed using the following dose reduction techniques: Automated exposure control, adjustment of mA and/or kv according to the patient's size, and use of iterative reconstruction technique. FINDINGS: The bilateral lung holden are relatively well aerated but demonstrate small amounts of posterior basilar atelectasis. No further significant consolidation, nodule or mass. No significant effusion. No pneumothorax. Mediastinum demonstrates normal thoracic aorta, pulmonary vasculature, and heart/pericardium. No axillary, hilar, or mediastinal adenopathy. Thyroid gland is grossly normal by CT evaluation. IMPRESSION: Very minimal bibasilar atelectasis. <Electronically signed by Benny Michelle > 06/09/20 [id number]
--- NOTE | 2020-06-09 09:16 | REP ---
INDICATION: AMS COMPARISON: None TECHNIQUE: Axial noncontrast images from the lung bases to the pubic symphysis with coronal and sagittal reformations. This CT examination was performed using the following dose reduction techniques: Automated exposure control, adjustment of mA and/or kv according to the patient's size, and use of iterative reconstruction technique. FINDINGS: Lung bases demonstrate mild bibasilar atelectasis. Liver, spleen, pancreas, gallbladder, bilateral adrenal glands and kidneys are normal. The enteric system is essentially unremarkable and without obstruction or acute inflammatory process. Normal terminal ileum and appendix identified in the right lower quadrant. Small hiatal hernia at the gastroesophageal junction noted. Few scattered sigmoid diverticula without acute diverticulitis. Pelvis demonstrates normal bladder and mildly prominent prostate gland. Small periumbilical fat containing hernia. No ascites. No free air. No adenopathy. No focal inflammatory stranding. Abdominal aorta without aneurysm. Musculoskeletal structures are intact and without acute osseous abnormality. IMPRESSION: No acute abdominopelvic pathology appreciated Nonacute findings as above. <Electronically signed by Benny Michelle > 06/09/20 0947
--- NOTE | 2020-06-09 10:19 | HPEPDOC ---
[facility] Medical History & Physical Date of Admission Jun 09, 2020 Date of Service: Jun 09, 2020 History and Physical CHIEF COMPLAINT: Unresponsiveness HISTORY OF PRESENT ILLNESS: History was obtained from chart review, , Dr. Lira in the ED. Patient was brought in from his senior care in [place] to the emergency department because he was found to be unresponsive with seizure-like activity shaking in his lower extremities. In the emergency department he received Versed which resolved the shaking. Patient is currently unresponsive and not answering any questions he does respond to pain. This could be a postictal status. Patient does have a known history of seizure activity but not medicated. CT of the head in the ED was negative. MRI brain is pending. Patient will be admitted to medical service for further management. Per , he's has multiple seizures in the past. First one December 2018, and occasionally every ~4 months and they lasted ~1 minute. tells me given that, decision was made with and PCP Dr Seay not to start him on any medications for seizure disorder. Sees neurologist in [place] Dr. Sang Aguilar #[id number]. PAST MEDICAL/SURGICAL HISTORY: Stage 6 Alzheimer's Dyslipidemia Tympanoplasty Class 1 Obesity SOCIAL HISTORY: From chart review He doesn't use alcohol He doesn't use tobacco He doesn't use illicit drug Lives at senior care in [place] FAMILY HISTORY: Chart Reviewed and none contributory to this admission ALLERGIES: Please see below. REVIEW OF SYSTEMS: Unable to obtain review of systems due to patient's mental status HOME MEDICATIONS: Please see below. PHYSICAL EXAMINATION: Constitutional: Unresponsive, in no apparent distress ENT: Sclera are clear. Mucosa is moist. Respiratory: Lungs CTA bilaterally. No respiratory distress. No use of accessory muscles. On room air Cardiovascular: RRR S1 and S2 are normal, no murmur Gastrointestinal: Abdomen is soft, non distended, non tender, BS present. Musculoskeletal: No lower extremity edema. Neurologic: Unable to assess no seizure-like activity at bedside Mental Status: A&O x0 Skin: Warm, dry LABORATORY DATA: See below. IMAGING: See chart MICROBIOLOGY: Please see below. ASSESSMENT/PLAN 70-year-old male history of Alzheimer's disease presents due to unresponsiveness and senior care suspected to be due to seizure-like activity admitted for medical management # Suspected seizure: Witnessed by staff and senior care as well as in the ED lower extremity shaking. Shaking resolved with Versed in the ED. Currently unresponsive could be postictal state. CT head negative. Fu EEG. I discussed the case with neurologist continuous mining machine coal miner Dr Collins, he recommended starting the pa segun on keppra 500BID given the reported history of multiple seizures in the past. He recommended against need for MRI brain at this time. Will follow up with his neurologist at [place] upon discharge. # lactic acidosis: 3.3 on admission, likely related to his seizure activity. Afebrile, no leukocytosis, I do not suspect infection at this time. Trend lactate. # Alzheimer's disease stage 6: At baseline patient doesn't speak cannot dress himself and is incontinent. Currently lives in senior care previously was dependent on his for dressing eating and hygiene activities. Continue his h ome medications. # DVT prophylaxis: Heparin A Yousef Hospitalist Vital Signs Vital Signs Date Time Temp Pulse Resp B/P (MAP) Pulse Ox O2 Delivery O2 Flow Rate FiO2 06/09/20 07:39 99.6 79 24 125/69 97 Room Air Laboratory Data Labs 24H Laboratory Tests 2 06/09/20 08:02: Magnesium Level 2.2, Total Creatine Kinase 106, Creatine Kinase MB 1.3, Creatine Kinase MB Relative Index 1.23, Troponin I < 0.02 06/09/20 08:03: Immature Granulocyte % (Auto) 0.4, Neutrophils (%) (Auto) 92.1H, Lymphocytes (%) (Auto) 2.9L, Monocytes (%) (Auto) 4.3, Eosinophils (%) (Auto) 0.1, Basophils (%) (Auto) 0.2, Neutrophils # (Auto) 8.3, Lymphocytes # (Auto) 0.3L, Monocytes # (Auto) 0.4, Eosinophils # (Auto) 0.0, Basophils # (Auto) 0.0, Nucleated Red Blood Cells % (auto) 0.0, Lactic Acid Level 3.2*H 06/09/20 08:22: Urine Color YELLOW, Urine Appearance HAZY, Urine pH 7.0, Urine Specific [place] 1.019, Urine Protein 1+H, Urine Glucose (UA) NEGATIVE, Urine Ketones NEGATIVE, Urine Blood 1+H, Urine Nitrite NEGATIVE, Urine Bilirubin NEGATIVE, Urine Urobilinogen 0.2, Urine Leukocyte Esterase NEGATIVE, Urine WBC (Auto) 1, Urine RBC (Auto) 17H, Urine Hyaline Casts (Auto) 0, Urine Bacteria (Auto) NEGATIVE, Urine Squamous Epithelial Cells 0, Urine Mucus (Auto) SMALL, Urine Sperm (Auto) 06/09/20 08:41: POC pH (Misc Panel) 7.374, POC Base Excess (Misc Panel) -4.0L, POC Saturated Percent O2 (Misc) 95, POC pO2 (Misc Panel) 76.0L, POC pCO2 (Misc Panel) 37.1, POC HCO3 (Misc Panel) 21.7L, POC Total CO2 (Misc Panel) 23.0 06/09/20 09:49: CBC/BMP Laboratory Tests 06/09/20 08:03 Home Medications Scheduled Donepezil HCl (Donepezil HCl) 10 Mg Tablet, 10 MG PO QPM Memantine HCl (Memantine HCl) 10 Mg Tablet, 10 MG PO BID Scheduled PRN Acetaminophen (Acetaminophen) 325 Mg Tablet, 650 MG PO Q6H PRN for PAIN / FEVER Bisacodyl (Bisacodyl) 10 Mg Supp.rect, 10 MG LA DAILY PRN for CONSTIPATION Magnesium Hydroxide (Milk of Magnesia) 400 Mg/5 Ml Oral.susp, 30 ML PO DAILY PRN for CONSTIPATION Sodium Phosphate,[place]-Dibasic (Enema) 133 Ml Enema, 1 EMILIA LA DAILY PRN for CONSTIPATION Allergies Coded Allergies: iodine (Verified Allergy, Mild, rash, 09/12/19) latex (Verified Allergy, Mild, 09/12/19) Celery (Verified Allergy, Unknown, 08/17/19) A-FIB/CHADSVASC A-FIB History Current/History of A-Fib/PAF?: No GEOVANNA CASTELLON MD Jun 09, 2020 10:19
[2020-06-09] MEDS ORDERED: ACETAMINOPHEN TAB 650MG DOSE (2X325MG) PO PRN (10:30)
[2020-06-09] MEDS ORDERED: MOM 30ML SUSPENSION UDC PO PRN (10:30)
[2020-06-09] MEDS ORDERED: MAALOX 30 ML SUSP *UDC PO PRN (10:30)
[2020-06-09 10:58] LABS: RSV AMPLIFICATION NEGATIVE (NEGATIVE)
--- NOTE | 2020-06-09 11:20 | REPVR ---
PROCEDURE INFORMATION: Exam: MR Head Without Contrast Exam date and time: 06/09/2020 11:05 AM Age: 70 years old Clinical indication: Altered mental status/memory loss; Other: AMS TECHNIQUE: Imaging protocol: MR of the head without contrast. COMPARISON: CT Head without contrast 06/09/2020 8:09 AM FINDINGS: Brain: No acute infarct identified on the diffusion-weighted imaging. No parenchymal hemorrhage. The brain demonstrates advanced for age generalized volume loss. In particular, there is temporal lobe volume loss. Slight patchy increased signal intensity in the deep white matter on the T2 weighted imaging most likely represents mild chronic small vessel ischemic change. No significant white matter disease for the patient's age. Cerebral ventricles: The ventricles are enlarged in keeping with volume loss. Bones/joints: The upper cervical spine is visualized on the sagittal T1 sequence. The C3 vertebral body and posterior elements appear T1 hypointense, of uncertain significance. This is poorly evaluated at the field of view edge. Paranasal sinuses: Normal as visualized. No acute sinusitis. Mastoid air cells: Small, nonspecific, patchy right mastoid effusion. Orbital cavity: Unremarkable. Soft tissues: Unremarkable. IMPRESSION: 1. No acute intracranial abnormality. 2. Considerable cerebral volume loss, advanced for age. 3. T1 hypointense appearance of C3 on the sagittal imaging of uncertain significance. Osseous metastatic disease could have this appearance. MRI cervical spine without and with contrast could be obtained for further evaluation. Electronically signed by: Flavia Farrell On 06/09/2020 11:19:54 AM
[2020-06-09] MEDS: levETIRAcetam INJection 500 MG in D5W MINI-BAG PLUS 100 ML IV SCH ×2 (11:56→23:14)
[2020-06-09 13:00] VITALS: BP 122/70
[2020-06-09 14:00] VITALS: BP 120/68
[2020-06-09] MEDS: MEMANTINE 5MG TABLET (NAMENDA) PO SCH ×2 (14:03→21:00)
[2020-06-09] MEDS: D5W/0.9% SODIUM CHLORIDE 1,000 ML IV SCH (14:13)
[2020-06-09 14:15] LABS: BLOOD UREA NITROGEN 12 MG/DL (7-18); CALCIUM LEVEL 8.4 MG/DL (8.8-10.2); CARBON DIOXIDE LEVEL 26 MEQ/L (21-32); CHLORIDE LEVEL 108 MEQ/L (98-107); CREATININE FOR GFR 1.16 MG/DL (0.70-1.30); GLOMERULAR FILTRATION RATE > 60.0 (>49); GLUCOSE, FASTING 107 MG/DL (70-100); POTASSIUM SERUM 4.1 MEQ/L (3.5-5.1); SODIUM LEVEL 141 MEQ/L (136-145)
[2020-06-09] MEDS: DONEPEZIL 5 MG TAB PO SCH (21:00)
[2020-06-09] MEDS: DOCUSATE SODIUM 100MG CAPSULE PO SCH (21:00)
[2020-06-09] MEDS: HEPARIN SOD (PORCINE) 5000UNITS/ML 1ML VIAL/SYRINGE SC SCH (21:22)
[2020-06-09 22:00] VITALS: BP 118/68
[2020-06-10] VITALS (7 sets, daily range): BP systolic 88–121; BP diastolic 46–75
[2020-06-10] MEDS: D5W/0.9% SODIUM CHLORIDE 1,000 ML IV SCH ×3 (01:45→23:16)
[2020-06-10 08:17] LABS: BASO % 0.5 % (0.0-1.0); EOS % 0.7 % (0.0-3.0); HEMATOCRIT 41.3 % (42.0-52.0); HEMOGLOBIN 14.3 g/dl (13.5-17.5); LYMPH # 0.6 10^3/uL (1.5-5.0); LYMPH % 11.1 % (24.0-44.0); MEAN CORPUSCULAR HEMOGLOBIN 30.6 pg (27.0-33.0); MEAN CORPUSCULAR HGB CONC 34.6 g/dl (32.0-36.5); MEAN CORPUSCULAR VOLUME 88.4 fl (80.0-96.0); MONO # 0.6 10^3/uL (0.0-0.8); MONO % 10.6 % (0.0-5.0); NEUTROPHILS # 4.4 10^3/uL (1.5-8.5); NEUTROPHILS % 76.6 % (36.0-66.0); PLATELET COUNT, AUTOMATED 142 10^3/uL (150-450); RED BLOOD COUNT 4.67 10^6/uL (4.30-6.10); WHITE BLOOD COUNT 5.8 10^3/uL (4.0-10.0)
[2020-06-10 08:34] LABS: BLOOD UREA NITROGEN 9 MG/DL (7-18); CALCIUM LEVEL 8.3 MG/DL (8.8-10.2); CARBON DIOXIDE LEVEL 25 MEQ/L (21-32); CHLORIDE LEVEL 107 MEQ/L (98-107); CREATININE FOR GFR 1.04 MG/DL (0.70-1.30); GLOMERULAR FILTRATION RATE > 60.0 (>49); GLUCOSE, FASTING 111 MG/DL (70-100); POTASSIUM SERUM 3.7 MEQ/L (3.5-5.1); SODIUM LEVEL 140 MEQ/L (136-145)
[2020-06-10] MEDS ORDERED: KEPP1TAB PO (09:31)
--- NOTE | 2020-06-10 10:05 | DS.PDOC ---
Discharge Summary General Date of Admission Jun 09, 2020 at 10:21 Date of Discharge 06/10/2020 Discharge Summary PROCEDURES PERFORMED DURING STAY: [None]. ADMITTING DIAGNOSES: 1. Unresponsiveness DISCHARGE DIAGNOSES: 1. Unresponsiveness due to Seizure disorder COMPLICATIONS/CHIEF COMPLAINT: Unresponsive Alzheimers Disease. HISTORY OF PRESENT ILLNESS: From H&P:History was obtained from chart review, , Dr. Lira in the ED. Patient was brought in [facility] his [facility] [place] to the emergency department because he was found to be unresponsive with seizure-like activity shaking in his lower extremities. In the emergency department he received Versed which resolved the shaking. Patient is currently unresponsive and not answering any questions he does respond to pain. This could be a postictal status. Patient does have a known history of seizure activity but not medicated. CT of the head in the ED was negative. MRI brain is pending. Patient will be admitted to medical service for further management. Per , he's has multiple seizures in the past. First one December 2018, and occasionally every ~4 months and they lasted ~1 minute. tells me given that, decision was made with and PCP Dr Seay not to start him on any medications for seizure disorder. HOSPITAL COURSE: 70-year-old male history of Alzheimer's disease presents due to unresponsiveness and penitentiary suspected to be due to seizure-like activity admitted for medical management. Witnessed by staff and penitentiary as well as in the ED lower extremity shaking. Shaking resolved with Versed in the ED. was initially unresponsive and now back to baseline at time of discharge he was likely postictal. CT head negative. I discussed the case with neurologist contract serviceman Dr Collins, he recommended starting the patient on keppra 500BID given the reported history of multiple seizures in the past. Will follow up with his neurologist at [place] upon discharge. As well as with PCP. Lactic acidosis resolved and was likely secondary to seizure activity. Alzheimer's disease stage 6: At baseline patient doesn't speak cannot dress himself and is incontinent. Currently lives [facility] previously was dependent on his for dressing eating and hygiene activities. Continue his home medications. DISCHARGE MEDICATIONS: Please see below. ALLERGIES: Please see below. PHYSICAL EXAMINATION ON DISCHARGE: VITAL SIGNS: Please see below. Constitutional: Comfortable in no apparent distress. Nonverbal. Opens eyes spontaneously. ENT: Sclera are clear. Mucosa is moist. Respiratory: Lungs CTA bilaterally. No respiratory distress. No use of accessory muscles. On room air Cardiovascular: RRR S1 and S2 are normal, no murmur Gastrointestinal: Abdomen is soft, non distended, non tender, BS present. Musculoskeletal: No lower extremity edema. Neurologic: Unable to assess due to advanced Alzheimer's disease Mental Status: A&O x0 which is his baseline as he is nonverbal Skin: Warm, dry LABORATORY DATA: Please see below. IMAGING: See chart PROGNOSIS: Fair ACTIVITY: [As tolerated]. DIET: Regular diet DISPOSITION: care home DISCHARGE INSTRUCTIONS: Please follow up with your primary care physician within 1 week from discharge. If you do not have one, please follow up with us to schedule an appointment. Please keep all of your follow up appointments. Please call central to book your appointments with hospital specialists. Please take all your medications as prescribed. Please call/come to Clinic or go to the Emergency Department if - Temp >101, intractable Nausea/Vomiting, Diarrhea, Mouth sores, Headaches, Altered mental status, Seizures, sudden onset of swelling, bleeding, shortness of breath or chest pain. ITEMS TO FOLLOWUP ON ON OUTPATIENT: 1. Follow up with your neurologist in [place] 2. Follow up with your primary care physician DISCHARGE CONDITION: [Stable]. TIME SPENT ON DISCHARGE: 35 minutes. Vital Signs/I&Os Vital Signs Date Time Temp Pulse Resp B/P (MAP) Pulse Ox O2 Delivery O2 Flow Rate FiO2 06/10/20 06:00 98.7 71 18 121/67 (85) 98 Room Air I&O- Last 24 Hours up to 6 AM 06/10/20 06:00 Intake Total 2845 ml Output Total 0 ml Balance 2845 ml Laboratory Data Labs 24H Laboratory Tests 2 06/09/20 13:44: Anion Gap 7L, Glomerular Filtration Rate > 60.0, Lactic Acid Level 2.7*H, Calcium Level 8.4L, Procalcitonin 0.18 06/09/20 18:27: Lactic Acid Followup at 4 Hours 1.3 06/10/20 07:52: Anion Gap 8, Glomerular Filtration Rate > 60.0, Calcium Level 8.3L, Immature Granulocyte % (Auto) 0.5, Neutrophils (%) (Auto) 76.6H, Lymphocytes (%) (Auto) 11.1L, Monocytes (%) (Auto) 10.6H, Eosinophils (%) (Auto) 0.7, Basophils (%) (Auto) 0.5, Neutrophils # (Auto) 4.4, Lymphocytes # (Auto) 0.6L, Monocytes # (Auto) 0.6, Eosinophils # (Auto) 0.0, Basophils # (Auto) 0.0, Nucleated Red Blood Cells % (auto) 0.0 CBC/BMP Laboratory Tests 06/09/20 13:44 06/10/20 07:52 Discharge Medications Scheduled Donepezil HCl (Donepezil HCl) 10 Mg Tablet, 10 MG PO QPM, (Reported) Levetiracetam (Keppra) 500 Mg Tablet, 500 MG PO BID Memantine HCl (Memantine HCl) 10 Mg Tablet, 10 MG PO BID, (Reported) Scheduled PRN Acetaminophen (Acetaminophen) 325 Mg Tablet, 650 MG PO Q6H PRN for PAIN / FEVER, (Reported) Bisacodyl (Bisacodyl) 10 Mg Supp.rect, 10 MG AR DAILY PRN for CONSTIPATION, (Reported) Magnesium Hydroxide (Milk of Magnesia) 400 Mg/5 Ml Oral.susp, 30 ML PO DAILY PRN for CONSTIPATION, (Reported) Sodium Phosphate,[place]-Dibasic (Enema) 133 Ml Enema, 1 EMILIA AR DAILY PRN for CONSTIPATION, (Reported) Allergies Coded Allergies: iodine (Verified Allergy, Mild, rash, 09/12/19) latex (Verified Allergy, Mild, 09/12/19) Celery (Verified Allergy, Unknown, 08/17/19) GEOVANNA CASTELLON MD Jun 10, 2020 10:05
[2020-06-10] MEDS: DOCUSATE SODIUM 100MG CAPSULE PO SCH ×2 (10:50→21:00)
[2020-06-10] MEDS: MEMANTINE 5MG TABLET (NAMENDA) PO SCH ×2 (10:50→21:00)
[2020-06-10] MEDS: HEPARIN SOD (PORCINE) 5000UNITS/ML 1ML VIAL/SYRINGE SC SCH ×2 (11:11→21:32)
[2020-06-10] MEDS: levETIRAcetam INJection 500 MG in D5W MINI-BAG PLUS 100 ML IV SCH ×2 (14:03→22:45)
--- NOTE | 2020-06-10 14:35 | ECGEPIP ---
[facility] - ED Test Date: 2020-06-09 Pat Name: BERNADINE JEFFERSON Department: Room: - Gender: Male [employer]: : 1950 Requested By: NURIA Whyte PA-C Order Number: [id number] Reading MD: Mona Antony Measurements Intervals [place] Rate: 82 P: 35 PA: 190 QRS: -11 QRSD: 89 T: -13 QT: 383 QTc: 448 Interpretive Statements SINUS RHYTHM WITH OCCASIONAL VENTRICULAR PREMATURE COMPLEXES LOW QRS VOLTAGE IN PRECORDIAL LEADS INFERIOR MYOCARDIAL INFARCTION, PROBABLY OLD NSTTW abnormalities SIMILAR 09/12/19 Electronically Signed on 06-10-2020 14:35:22 EST by Mona Antony
[2020-06-10] MEDS: DONEPEZIL 5 MG TAB PO SCH (21:00)
[2020-06-10] MEDS ORDERED: NS 1,000 ML IV ONE (21:30)
[2020-06-11 06:00] VITALS: BP 107/53
[2020-06-11] MEDS: D5W/0.9% SODIUM CHLORIDE 1,000 ML IV SCH (07:08)
[2020-06-11] MEDS: DOCUSATE SODIUM 100MG CAPSULE PO SCH ×2 (09:00→20:43)
[2020-06-11] MEDS: MEMANTINE 5MG TABLET (NAMENDA) PO SCH ×2 (09:00→20:44)
--- NOTE | 2020-06-11 09:48 | EEG ---
ELECTROENCEPHALOGRAM DATE: 06/10/2020 DIAGNOSIS: Unresponsive, suspected new onset seizure. EEG# 20-21 REFERRING PHYSICIAN: Sergey Corado MD HISTORY: Patient is a 70-year-old man with a history of Alzheimer's dementia who was brought to the emergency department due to unresponsiveness and care home suspected seizure like activity. He is currently taking Keppra, donepezil, memantine, etc. TECHNICAL DESCRIPTION: This digital EEG was recorded by 21-scalp, ear, and two EKG electrodes and was reviewed in bipolar and referential montages following reformatting in 10-20 international electrode placement system. INTERPRETATION: Patient was noted to be mostly in drowsy state during this EEG. Resting background rhythm consisted of low amplitude 6-7 Hz theta activity measuring 15-20 microvolts in amplitude, which was symmetric bilaterally. Stage 1 sleep was noted and was symmetrically bilaterally. Hyperventilation was not performed. Photic stimulation remained unremarkable. EKG revealed normal sinus rhythm. During EEG, right arm shaking and slapping of the right thigh was noted. In one of these events, left temporal and parietal theta activity was noted without evolution and separate of mixed electrical activity in other head regions. This can represent motor artifact or SREDA. No clear epileptiform abnormalities were seen. CONCLUSION: This EEG in awake, drowsy states, stage 1 sleep is abnormal due to presence of mild generalized slowing and disorganization of background consistent with nonspecific diffuse cerebral dysfunction such as seen in encephalopathy due to multiple potential causes. No clear epileptiform abnormalities were seen. Clinical correlation is recommended.
[2020-06-11] MEDS: HEPARIN SOD (PORCINE) 5000UNITS/ML 1ML VIAL/SYRINGE SC SCH ×2 (10:11→20:49)
[2020-06-11] MEDS: levETIRAcetam INJection 500 MG in D5W MINI-BAG PLUS 100 ML IV SCH (10:11)
--- NOTE | 2020-06-11 10:37 | IPNPDOC ---
Text Note Date of Service The patient was seen on 06/11/20. NOTE Subjective: Patient was seen and examined this morning at bedside. Patient was transferred back to his retirement yesterday as planned because they did not think he was back to the same level of functioning he was at before. It is a tricky scenario as patient is slowly worsening due to his clinical disease process and has periods when he is better than others. He was with his at bedside this morning and she tells me he opened his eyes and was back to his baseline that she knows and was able to eat his breakfast he also ate his dinner last evening. He needs 1:1 feeding. Patient is medically cleared to go back to retirement Objective: VITAL SIGNS: Please see below. Constitutional: Comfortable in no apparent distress. Nonverbal. Opens eyes spontaneously and was able to maintain eye contact and have breakfast for over 15 minutes morning. tells me this is baseline ENT: Sclera are clear. Mucosa is moist. Respiratory: Lungs CTA bilaterally. No respiratory distress. No use of accessory muscles. On room air Cardiovascular: RRR S1 and S2 are normal, no murmur Gastrointestinal: Abdomen is soft, non distended, non tender, BS present. Musculoskeletal: No lower extremity edema. Neurologic: Unable to assess due to advanced Alzheimer's disease Mental Status: A&O x0 which is his baseline as he is nonverbal Skin: Warm, dry Assessment/plan: 70-year-old male history of Alzheimer's disease presents due to unresponsiveness and retirement suspected to be due to seizure-like activity admitted for medical management. Witnessed by staff and retirement as well as in the ED lower extremity shaking. Shaking resolved with Versed in the ED. was initially unresponsive and now back to baseline at time of discharge he was likely postictal. CT head negative. I discussed the case with neurologist information systems specialist Dr Collins, he recommended starting the patient on keppra 500BID given the reported history of multiple seizures in the past. Will follow up with his neurologist at [place] upon discharge. As well as with PCP. Lactic acidosis resolved and was likely secondary to seizure activity. Alzheimer's disease stage 6: At baseline patient doesn't speak cannot dress himself and is incontinent. Currently lives in retirement previously was dependent on his for dressing eating and hygiene activities. Continue his home medications. His overall clinical course due to his Alzheimer's disease is progressively worsening this morning reports that his back at baseline opening eyes and having breakfast he is medically cleared for discharge back to retirement. He will be switched ALC status until then. 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 A Mickie Hospitalist VSMayra, I+O VSMayra, I+O Vital Signs Date Time Temp Pulse Resp B/P (MAP) Pulse Ox O2 Delivery O2 Flow Rate FiO2 06/11/20 06:00 97.8 53 20 107/53 (71) 95 Room Air I&O- Last 24 Hours up to 6 AM 06/11/20 06:00 Intake Total 2875 ml Output Total 380 ml Balance 2495 ml GEOVANNA CASTELLON MD Jun 11, 2020 10:37
[2020-06-11 14:31] VITALS: BP 110/57
[2020-06-11] MEDS: levETIRAcetam **XR** 500 MG TABLET PO SCH (20:42)
[2020-06-11] MEDS: DONEPEZIL 5 MG TAB PO SCH (20:43)
[2020-06-12 06:00] VITALS: BP 139/65
--- NOTE | 2020-06-12 07:48 | IPNPDOC ---
Text Note Date of Service The patient was seen on 06/12/20. NOTE Subjective: Patient was seen and examined this morning at bedside. Patient is medically cleared to go back to long term. Has been eating with assisted feeds. Objective: VITAL SIGNS: Please see below. Constitutional: Comfortable in no apparent distress. Nonverbal. Has been opening eyes and eating now. ENT: Sclera are clear. Mucosa is moist. Respiratory: Lungs CTA bilaterally. No respiratory distress. No use of accessory muscles. On room air Cardiovascular: RRR S1 and S2 are normal, no murmur Gastrointestinal: Abdomen is soft, non distended, non tender, BS present. Musculoskeletal: No lower extremity edema. Neurologic: Unable to assess due to advanced Alzheimer's disease Mental Status: A&O x0 which is his baseline as he is nonverbal Skin: Warm, dry Assessment/plan: 70-year-old male history of Alzheimer's disease presents due to unresponsiveness and long term suspected to be due to seizure-like activity admitted for medical management. Witnessed by staff and long term as well as in the ED lower extremity shaking. Shaking resolved with Versed in the ED. was initially unresponsive and now back to baseline at time of discharge he was likely postictal. CT head negative. I discussed the case with neurologist regional facilities specialist Dr Collins, he recommended starting the patient on keppra 500BID given the reported history of multiple seizures in the past. Will follow up with his neurologist at [place] upon discharge. As well as with PCP. Lactic acidosis resolved and was likely secondary to seizure activity. Alzheimer's disease stage 6: At baseline patient doesn't speak cannot dress himself and is incontinent. Currently lives in long term previously was dependent on his for dressing eating and hygiene activities. Continue his home medications. He is medically cleared for discharge back to long term. A Mickie Hospitalist Mayra HAIR, I+O VSMayra I+O Vital Signs Date Time Temp Pulse Resp B/P (MAP) Pulse Ox O2 Delivery O2 Flow Rate FiO2 06/12/20 06:00 97.7 64 17 139/65 (89) 97 Room Air I&O- Last 24 Hours up to 6 AM 06/12/20 06:00 Intake Total 450 ml Output Total 0 ml Balance 450 ml GEOVANNA CASTELLON MD Jun 12, 2020 07:48
[2020-06-12] MEDS: DOCUSATE SODIUM 100MG CAPSULE PO SCH (08:19)
[2020-06-12] MEDS: HEPARIN SOD (PORCINE) 5000UNITS/ML 1ML VIAL/SYRINGE SC SCH (08:19)
[2020-06-12] MEDS: levETIRAcetam **XR** 500 MG TABLET PO SCH (08:19)
[2020-06-12] MEDS: MEMANTINE 5MG TABLET (NAMENDA) PO SCH (08:19)
== END 2020-06-12 08:44 | DRG 101 ==
LOC: M ED 07:35 → EDBD 07:35 → M MSPAV 10:21 → M ED 12:46
PROVIDERS: ADMIT Internal Medicine Pulmonary Disease; ATTEND Family Medicine
DX: G40.909 Epilepsy, unspecified, not intractable, without status epilepticus (principal); E87.2 Acidosis; G30.9 Alzheimer's disease, unspecified; F02.80 Dementia in other diseases classified elsewhere, unspecified severity, without behavioral disturbance, psychotic disturbance, mood disturbance, and anxiety; E66.9 Obesity, unspecified; Z66 Do not resuscitate; Z79.899 Other long term (current) drug therapy; Z68.30 Body mass index [BMI] 30.0-30.9, adult; Z88.8 Allergy status to other drugs, medicaments and biological substances; Z91.040 Latex allergy status; Z91.018 Allergy to other foods

== ENCOUNTER → 2020-06-10 | Outpatient (REF) | payer MEDICARE, OTHER ==
[~2020-06-10] MED LIST changes: +APAP325T4 PO; +BISA10SU20 PR; +DONE10TA90 PO; +ENEMENE PR; +KEPP1TAB PO; +MEMA10TA19 PO; +MILKSUS3 PO; +QUET50TA3 PO; -QUET5TAB PO
== END ==
PROVIDERS: ATTEND Internal Medicine
DX: Z20.822 Contact with and (suspected) exposure to COVID-19 (principal); Z53.9 Procedure and treatment not carried out, unspecified reason

== ENCOUNTER → 2020-06-17 | Outpatient (REF) ==
[~2020-06-17] MED LIST changes: -QUET50TA3 PO; +QUET5TAB PO
== END ==
PROVIDERS: ATTEND Internal Medicine
DX: Z20.822 Contact with and (suspected) exposure to COVID-19 (principal)

== ENCOUNTER → 2020-06-18 | Outpatient (REF) | payer MEDICARE, OTHER ==
[~2020-06-18] MED LIST changes: +QUET50TA3 PO; -QUET5TAB PO
[2020-06-18 10:05] LABS: HEMATOCRIT 41.9 % (42.0-52.0); HEMOGLOBIN 14.7 g/dl (13.5-17.5); MEAN CORPUSCULAR HEMOGLOBIN 29.9 pg (27.0-33.0); MEAN CORPUSCULAR HGB CONC 35.1 g/dl (32.0-36.5); MEAN CORPUSCULAR VOLUME 85.3 fl (80.0-96.0); PLATELET COUNT, AUTOMATED 232 10^3/uL (150-450); RED BLOOD COUNT 4.91 10^6/uL (4.30-6.10); WHITE BLOOD COUNT 6.5 10^3/uL (4.0-10.0)
[2020-06-18 10:38] LABS: BLOOD UREA NITROGEN 12 MG/DL (7-18); CALCIUM LEVEL 8.6 MG/DL (8.8-10.2); CARBON DIOXIDE LEVEL 26 MEQ/L (21-32); CHLORIDE LEVEL 107 MEQ/L (98-107); CREATININE FOR GFR 0.91 MG/DL (0.70-1.30); GLOMERULAR FILTRATION RATE > 60.0 (>49); GLUCOSE, FASTING 82 MG/DL (70-100); POTASSIUM SERUM 4.3 MEQ/L (3.5-5.1); SODIUM LEVEL 138 MEQ/L (136-145)
== END ==
PROVIDERS: ATTEND Internal Medicine
DX: G40.909 Epilepsy, unspecified, not intractable, without status epilepticus (principal)

== ENCOUNTER → 2020-06-24 | Outpatient (REF) | payer MEDICARE | PROVIDERS: ATTEND Internal Medicine | DX: Z20.822 Contact with and (suspected) exposure to COVID-19 (principal) ==

== ENCOUNTER → 2020-07-01 | Outpatient (REF) | payer MEDICARE, OTHER | PROVIDERS: ATTEND Internal Medicine | DX: Z20.822 Contact with and (suspected) exposure to COVID-19 (principal) ==

== ENCOUNTER → 2020-07-02 | Outpatient (REF) | payer MEDICARE, OTHER ==
[2020-07-02 18:09] LABS: HEMATOCRIT 45.4 % (42.0-52.0); HEMOGLOBIN 15.2 g/dl (13.5-17.5); MEAN CORPUSCULAR HEMOGLOBIN 29.5 pg (27.0-33.0); MEAN CORPUSCULAR HGB CONC 33.5 g/dl (32.0-36.5); MEAN CORPUSCULAR VOLUME 88.2 fl (80.0-96.0); PLATELET COUNT, AUTOMATED 254 10^3/uL (150-450); RED BLOOD COUNT 5.15 10^6/uL (4.30-6.10); WHITE BLOOD COUNT 7.3 10^3/uL (4.0-10.0)
[2020-07-02 18:43] LABS: BLOOD UREA NITROGEN 20 MG/DL (7-18); CALCIUM LEVEL 8.8 MG/DL (8.8-10.2); CARBON DIOXIDE LEVEL 26 MEQ/L (21-32); CHLORIDE LEVEL 105 MEQ/L (98-107); CREATININE FOR GFR 0.89 MG/DL (0.70-1.30); FREE T4 1.18 NG/DL (0.76-1.46); GLOMERULAR FILTRATION RATE > 60.0 (>49); GLUCOSE, FASTING 78 MG/DL (70-100); POTASSIUM SERUM 4.3 MEQ/L (3.5-5.1); SODIUM LEVEL 140 MEQ/L (136-145)
== END ==
PROVIDERS: ATTEND Physician Assistant
DX: R56.9 Unspecified convulsions (principal); R53.83 Other fatigue

== ENCOUNTER → 2020-07-08 | Outpatient (REF) | payer MEDICARE, OTHER | PROVIDERS: ATTEND Internal Medicine | DX: Z20.822 Contact with and (suspected) exposure to COVID-19 (principal) | CPT/HCPCS: 36415; 80180; U0003 ==

== ENCOUNTER → 2020-07-15 | Outpatient (REF) | payer MEDICARE, OTHER | PROVIDERS: ATTEND Internal Medicine | DX: Z20.822 Contact with and (suspected) exposure to COVID-19 (principal) ==

== ENCOUNTER → 2020-07-22 | Outpatient (REF) | payer MEDICARE, OTHER | PROVIDERS: ATTEND Internal Medicine | DX: Z11.52 Encounter for screening for COVID-19 (principal) ==

== ENCOUNTER → 2020-08-14 | Outpatient (REF) | payer MEDICARE, OTHER ==
[2020-08-14 11:19] LABS: RSV AMPLIFICATION NEGATIVE (NEGATIVE)
== END ==
PROVIDERS: ATTEND Internal Medicine
DX: Z20.822 Contact with and (suspected) exposure to COVID-19 (principal)